=== PATIENT | female | born 1955 | race Caucasian/White ===

== ENCOUNTER 2016-03-30 14:44 | Emergency (ER) | payer MEDICARE, OTHER ==
[2016-03-30] MEDS ORDERED: PROPARACAINE 0.5% OPHTH DROPS 15 ML ONE (15:03)
[2016-03-30] MEDS ORDERED: HYDROcod/ACETAM 5/325 MG TABLET PO STA (15:15)
[2016-03-30] MEDS ORDERED: PROPARACAINE 0.5% OPHTH DROPS 15 ML EACHEYE STA (15:16)
[2016-03-30] MEDS ORDERED: HYDROcod/ACETAM 5/325 MG TABLET ONE (15:23)
[2016-03-30] MEDS ORDERED: diazePAM 5 MG TABLET PO STA (15:57)
[2016-03-30] MEDS ORDERED: diazePAM 5 MG TABLET PO ONE (15:59)
== END 2016-03-30 17:28 | disposition home or self-care (01) ==
DX: G44.059 Short lasting unilateral neuralgiform headache with conjunctival injection and tearing (SUNCT), not intractable (principal); M79.2 Neuralgia and neuritis, unspecified; R03.0 Elevated blood-pressure reading, without diagnosis of hypertension
CPT/HCPCS: 36415; 85025; 85651; 86140; 99282; 99284; A9270; J3490

== ENCOUNTER 2016-03-31 | Outpatient (CLI) | payer MEDICARE, OTHER | END 2016-03-31 17:24 | disposition short-term general hospital (02) | CPT/HCPCS: A0425; A0429 ==

== ENCOUNTER 2016-04-12 19:32 | Emergency (ER) | payer MEDICARE, OTHER ==
[2016-04-12] MEDS ORDERED: DEXAMETHASONE 10 MG/ML VIAL PO STA (20:13)
[2016-04-12] MEDS ORDERED: GABAPENTIN 100 MG CAPSULE PO STA (20:13)
[2016-04-12] MEDS ORDERED: KETOROLAC 60 MG/2 ML VIAL IM STA (20:13)
[2016-04-12] MEDS ORDERED: HYDROmorphone 1 MG/ML SYRINGE IM STA ×2 (20:13→21:07)
[2016-04-12] MEDS ORDERED: HYDROmorphone 1 MG/ML SYRINGE ONE ×2 (20:16→21:22)
[2016-04-12] MEDS ORDERED: GABAPENTIN 100 MG CAPSULE PO ONE (20:16)
[2016-04-12] MEDS ORDERED: DEXAMETHASONE 10 MG/ML VIAL ONE (20:16)
[2016-04-12] MEDS ORDERED: KETOROLAC 60 MG/2 ML VIAL ONE (20:17)
[2016-04-12] MEDS ORDERED: CHERRY SYRUP 10 ML UDC PO ONE (20:19)
[2016-04-12] MEDS ORDERED: oxyCOD/ACETAMIN 5 MG/325 MG TABLET PO STA (21:07)
[2016-04-12] MEDS ORDERED: oxyCOD/ACETAMIN 5 MG/325 MG TABLET PO ONE ×2 (21:22→21:30)
[2016-04-12] MEDS ORDERED: oxyCODONE/ACET 5/325 Prepack 4 PO STA (22:02)
[2016-04-12] MEDS ORDERED: oxyCODONE/ACET 5/325 Prepack 4 PO ONE (22:11)
== END 2016-04-12 22:25 | disposition home or self-care (01) ==
DX: B02.9 Zoster without complications (principal); G50.1 Atypical facial pain
CPT/HCPCS: 96372; 99283; 99284; A9270; J1170

== ENCOUNTER 2016-06-01 20:26 | Emergency (ER) | payer MEDICARE, OTHER ==
[2016-06-01] MEDS ORDERED: PROPARACAINE 0.5% OPHTH DROPS 15 ML RIGHTEYE STA (20:55)
[2016-06-01] MEDS ORDERED: PROPARACAINE 0.5% OPHTH DROPS 15 ML ONE (20:55)
[2016-06-01] MEDS ORDERED: valACYclovir 500 MG TABLET PO STA (22:05)
[2016-06-01] MEDS ORDERED: valACYclovir 500 MG TABLET PO ONE (22:24)
== END 2016-06-01 22:32 | disposition home or self-care (01) ==
DX: H57.11 Ocular pain, right eye (principal); B02.30 Zoster ocular disease, unspecified; R03.0 Elevated blood-pressure reading, without diagnosis of hypertension; Z87.891 Personal history of nicotine dependence
CPT/HCPCS: 99283; A9270; J3490

== ENCOUNTER 2016-11-19 06:49 | Outpatient (CLI) | payer MEDICARE, OTHER | END 2016-11-19 06:50 | disposition critical access hospital (66) | LOC: EMS 06:49 | PROVIDERS: ATTEND Surgery | DX: R11.2 Nausea with vomiting, unspecified (principal); R19.7 Diarrhea, unspecified; R42 Dizziness and giddiness; R10.9 Unspecified abdominal pain | CPT/HCPCS: A0425; A0427 ==

== ENCOUNTER 2016-11-19 06:58 | Observation (INO) | payer MEDICARE, OTHER ==
[2016-11-19] MEDS ORDERED: SODIUM CHLORIDE 0.9% 1,000 ML IV ONE ×3 (07:28→10:02)
[2016-11-19] MEDS ORDERED: PROMETHAZINE INJ 25 MG in SODIUM CHLORIDE 0.9% 50 ML IV STA (07:28)
--- NOTE | 2016-11-19 07:31 | ED Physician Documentation ---
PD HPI NVD - Stated complaint Stated Complaint: N/V/D - Chief complaint Chief Complaint: Abd Pain - History obtained from History obtained from: Patient, EMS - History of Present Illness Timing - onset: How many days ago (5) Timing - duration: Days (5) Timing - details: Gradual onset, Still present Associated symptoms: Abdominal pain, Dizzy, Loss of appetite Contributing factors: No: Recent antibiotics Improved by: Vomiting Similar symptoms before: Has not had sx before Recently seen: Not recently seen - Additonal information Additional information: 61-year-old female With a history of GERD has developed nausea vomiting and diarrhea over the past 5 days. She has had diarrhea 5 times per day and vomited numerous times. She is nauseated now after receiving Zofran in route to the hospital. She has some epigastric pain as well. She has not noted any blood in her stool or vomit. She feels weak and very sick. Review of Systems Constitutional: reports: Chills, Myalgias, Fatigue, Sweats. denies: Fever Eyes: denies: Decreased vision Ears: denies: Ear pain Nose: denies: Rhinorrhea / runny nose, Congestion Throat: denies: Sore throat Cardiac: denies: Chest pain / pressure, Palpitations Respiratory: denies: Dyspnea, Cough GI: reports: Abdominal Pain, Nausea, Vomiting, Diarrhea : denies: Dysuria, Frequency Skin: denies: Rash Musculoskeletal: denies: Neck pain, Back pain, Extremity pain Neurologic: reports: Generalized weakness. 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 and currettage, Other - Present Medications Home Medications: Ambulatory Orders Medication Instructions Recorded Confirmed Sucralfate [Carafate] 1 gm PO ACHS #40 [facility] [place] 01/17/13 09/06/14 Esomeprazole Magnesium [Nexium] 40 mg PO BID 03/08/13 11/19/16 Sertraline [Zoloft] 75 mg PO DAILY 09/06/14 09/06/14 raNITIdine [Zantac] 150 mg PO DAILY 09/06/14 11/19/16 Hydrocodone/Acetaminophen 1 - 2 each PO Q6H PRN #14 tablet 03/30/16 [Hydrocodon-Acetaminophen 5-325] carBAMazepine [TEGretol] 100 mg PO BID #20 tablet 03/30/16 Dexamethasone [Decadron] 4 mg PO DAILY #5 tablet 04/12/16 Erythromycin Base [Erythromycin 1 applic OP QID #3.5 g 04/12/16 Ophthalmic Ointment] Valacyclovir HCl [Valtrex] 1,000 mg PO TID 10 Days tablet 06/01/16 11/19/16 Gabapentin [Gabapentin] 600 mg PO TID 11/19/16 11/19/16 Venlafaxine HCl [Venlafaxine HCl 150 mg PO DAILY PM 11/19/16 11/19/16 ER] Zolpidem Tartrate [Zolpidem 5 mg PO DAILY PM PRN 11/19/16 11/19/16 Tartrate] - Allergies Allergies/Adverse Reactions: Allergies Allergy/AdvReac Type Severity Reaction Status Date / Time No Known Drug Allergies Allergy Verified 11/19/16 07:08 - Social History Does the pt smoke?: No Smoking Status: Former smoker Does the pt drink ETOH?: No Does the pt have substance abuse?: No - Immunizations Immunizations are current?: Yes - POLST Patient has POLST: No PD ED PE NORMAL - Vitals Vital signs reviewed: Yes (Tachycardic and hypertensive) - General General: Well developed/nourished, Other (61-year-old female laying in the position whining and barely able to move.) - HEENT HEENT: Atraumatic, PERRL - Neck Neck: Supple, no meningeal sign - Cardiac Cardiac: No murmur, Other (Tachycardia to 100) - Respiratory Respiratory: No respiratory distress, Clear bilaterally - Abdomen Abdomen: Soft, Other (Mild epigastric tenderness without guarding or rebound no other specific tenderness in the abdomen) - Back Back: No CVA TTP, No spinal TTP - Derm Derm: Normal color, Warm and dry, No rash - Extremities Extremities: No deformity, No edema - Neuro Neuro: No motor deficit, No sensory deficit - Psych Psych: Other (Mood is withdrawn the affect is flat) Results - Vitals Vitals: Vital Signs - 24 hr 11/19/16 11/19/16 11/19/16 07:04 07:09 08:54 Temperature 36.4 C L 36.3 C L Heart Rate 106 H 81 82 Respiratory 24 24 Rate Blood Pressure 170/150 H 141/37 H 124/81 H O2 Saturation 99 97 100 11/19/16 11/19/16 11/19/16 10:01 12:44 13:52 Temperature 36.1 C L 37.1 C 35.9 C L Heart Rate 74 82 89 Respiratory 16 20 16 Rate Blood Pressure 103/66 104/67 124/59 L O2 Saturation 100 99 100 Oxygen O2 Source Room air - Labs Labs: Laboratory Tests 11/19/16 11/19/16 09:08 09:08 WBC 9.9 RBC 4.06 L Hgb 13.6 Hct 40.1 MCV 98.8 MCH 33.5 H MCHC 33.9 RDW 13.0 Plt Count 309 MPV 8.1 Neut # 8.1 H Lymph # 1.1 L Harney # 0.7 Eos # 0.0 Baso # 0.0 Absolute Nucleated RBC 0.00 Nucleated RBC % 0.0 Sodium 140 Potassium 3.3 L Chloride 104 Carbon Dioxide 21 Anion Gap 15.0 H BUN 24 H Creatinine 1.2 H Estimated GFR (MDRD) 46 L Glucose 95 Calcium 8.9 Total Bilirubin 0.6 AST 32 ALT 24 Alkaline Phosphatase 102 Total Protein 7.8 Albumin 4.3 Globulin 3.5 Albumin/Globulin Ratio 1.2 Lipase 30 Procedures - IVC sono (time) 0747 Bedside IVC sono: IVC measures (cm) (0.85), IVC collapsed c insp (cm) (complete) , Dehydration PD MEDICAL DECISION MAKING - ED course Complexity details: reviewed old records, reviewed results, re-evaluated patient , considered differential, d/w patient ED course: 61-year-old female with acute gastroenteritis on the fifth day appears significantly dehydrated. IV is started in the field. She is administered normal saline she did not have much improvement with Zofran and is given Phenergan intravenously for nausea. Departure - Departure Disposition: ED Place in Observation Clinical Impression: Dehydration, Gastroenteritis
[2016-11-19] MEDS ORDERED: PROMETHAZINE 25 MG/1 ML VIAL ONE (07:47)
[2016-11-19 09:18] LABS: BASOPHILS % (AUTO) 0.2 %; EOSINOPHILS % (AUTO) 0.1 %; HCT - HEMATOCRIT 40.1 % (37.0-47.0); HGB - HEMOGLOBIN 13.6 g/dL (12.0-16.0); LYMPHOCYTES # (AUTO) 1.1 10^3/uL (1.5-3.5); LYMPHOCYTES % (AUTO) 10.7 %; MEAN CORPUSCULAR HEMOGLOBIN 33.5 pg (27.0-31.0); MEAN CORPUSCULAR HGB CONC 33.9 g/dL (32.0-36.0); MEAN CORPUSCULAR VOLUME 98.8 fL (81.0-99.0); MEAN PLATELET VOLUME 8.1 fL (7.9-10.8); MONOCYTES # (AUTO) 0.7 10^3/uL (0.0-1.0); MONOCYTES % (AUTO) 6.9 %; NEUTROPHILS # (AUTO) 8.1 10^3/uL (1.5-6.6); NEUTROPHILS % (AUTO) 82.1 %; RED BLOOD COUNT 4.06 10^6/uL (4.20-5.40); UNCORRECTED WHITE BLOOD COUNT 9.9 x10^3/uL; WHITE BLOOD COUNT 9.9 x10^3/uL (4.8-10.8)
[2016-11-19 09:38] LABS: ALBUMIN/GLOBULIN RATIO 1.2 (1.0-2.2); BILIRUBIN,TOTAL 0.6 mg/dL (0.2-1.0); CALCIUM 8.9 mg/dL (8.5-10.3); CREATININE 1.2 mg/dL (0.4-1.0); POTASSIUM 3.3 mmol/L (3.5-5.0); TOTAL PROTEIN 7.8 g/dL (6.7-8.2)
[2016-11-19] MEDS ORDERED: POTASSIUM BICARB 25 MEQ TABLET PO STA (09:53)
[2016-11-19] MEDS ORDERED: ONDANSETRON 4 MG/2 ML VIAL IVP STA ×2 (10:08→14:26)
[2016-11-19] MEDS ORDERED: POTASSIUM CHLOR 10 MEQ/100 ML 10 MEQ/100 ML BAG IV ONE ×2 (10:08→10:19)
[2016-11-19] MEDS ORDERED: SODIUM CHLORIDE FLUSH 0.9% 10 ML SYRINGE IVP ONE (10:19)
[2016-11-19] MEDS ORDERED: ONDANSETRON 4 MG/2 ML VIAL ONE (10:19)
[2016-11-19] MEDS ORDERED: SODIUM CHLORIDE FLUSH 0.9% 10 ML SYRINGE IVP PRN (14:15)
[2016-11-19] MEDS ORDERED: ACETAMINOPHEN 325 MG TABLET PO PRN (14:15)
[2016-11-19] MEDS ORDERED: PROCHLORPERAZINE 10 MG/2 ML VIAL IVP PRN (14:15)
[2016-11-19] MEDS ORDERED: ONDANSETRON 4 MG/2 ML VIAL IVP PRN (14:15)
[2016-11-19] MEDS ORDERED: ONDANSETRON ODT 4 MG TABLET TL PRN (14:15)
[2016-11-19] MEDS ORDERED: diazePAM 5 MG TABLET PO PRN (14:17)
[2016-11-19] MEDS: PANTOPRAZOLE 40 MG VIAL IVP SCH (16:18)
[2016-11-19] MEDS: SODIUM CHLORIDE FLUSH 0.9% 10 ML SYRINGE IVP SCH (16:18)
[2016-11-19] MEDS: GABAPENTIN 300 MG CAPSULE PO SCH ×2 (16:43→21:51)
[2016-11-19 18:20] LABS: BILIRUBIN,URINE NEGATIVE (NEGATIVE); PH,URINE 5.5 PH (5.0-7.5)
[2016-11-19 18:22] LABS: UA CHARGE (STRIP ONLY) YES; UR CULTURE IF IND NOT INDICATED
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
[2016-11-19] MEDS: SODIUM CHLORIDE 0.9% 1,000 ML IV SCH (19:40)
[2016-11-20 05:54] LABS: BASOPHILS # (AUTO) 0.1 10^3/uL (0.0-0.1); BASOPHILS % (AUTO) 1.2 %; EOSINOPHILS # (AUTO) 0.2 10^3/uL (0.0-0.7); EOSINOPHILS % (AUTO) 3.6 %; HCT - HEMATOCRIT 40.7 % (37.0-47.0); HGB - HEMOGLOBIN 13.4 g/dL (12.0-16.0); LYMPHOCYTES # (AUTO) 2.2 10^3/uL (1.5-3.5); LYMPHOCYTES % (AUTO) 39.6 %; MEAN CORPUSCULAR HEMOGLOBIN 33.3 pg (27.0-31.0); MEAN CORPUSCULAR HGB CONC 32.8 g/dL (32.0-36.0); MEAN CORPUSCULAR VOLUME 101.2 fL (81.0-99.0); MEAN PLATELET VOLUME 8.2 fL (7.9-10.8); MONOCYTES # (AUTO) 0.5 10^3/uL (0.0-1.0); MONOCYTES % (AUTO) 9.2 %; NEUTROPHILS # (AUTO) 2.6 10^3/uL (1.5-6.6); NEUTROPHILS % (AUTO) 46.4 %; RED BLOOD COUNT 4.02 10^6/uL (4.20-5.40); RED CELL DISTRIBUTION WIDTH 13.4 % (12.0-15.0); UNCORRECTED WHITE BLOOD COUNT 5.6 x10^3/uL; WHITE BLOOD COUNT 5.6 x10^3/uL (4.8-10.8)
[2016-11-20] MEDS: PANTOPRAZOLE 40 MG VIAL IVP SCH ×2 (05:54→16:33)
[2016-11-20] MEDS: GABAPENTIN 300 MG CAPSULE PO SCH ×2 (05:54→14:41)
[2016-11-20] MEDS: SODIUM CHLORIDE FLUSH 0.9% 10 ML SYRINGE IVP SCH ×2 (05:55→13:01)
[2016-11-20 06:03] LABS: CALCIUM 8.7 mg/dL (8.5-10.3); POTASSIUM 3.3 mmol/L (3.5-5.0)
[2016-11-20] MEDS: SODIUM CHLORIDE 0.9% 1,000 ML IV SCH (06:10)
[2016-11-20] MEDS ORDERED: POTASSIUM CHLORIDE 20 MEQ TABLET PO ONE (08:45)
[2016-11-20] MEDS ORDERED: SERTRALINE 25 MG TABLET PO SCH (09:00)
[2016-11-20] MEDS ORDERED: POLYETHYLENE GLYCOL 3350 17 GM PACKET PO SCH (09:00)
[2016-11-20 16:33] VITALS: BP 130/67
--- NOTE | 2016-11-20 18:09 | Discharge Plan ---
Discharge Plan Disposition: 01 Home, Self Care Condition: Stable Diet: Regular Activity Restrictions: Activity as Tolerated Shower Restrictions: No Driving Restrictions: No Weight Bearing: Full Weight Additional Instructions or Follow Up instructions: Today in the Emergency Department your blood pressure was elevated. This can happen from the stress of the visit itself, from a current illness or circumstance or from uncontrolled hypertension. If you take blood pressure medications take your usual mediations, have your blood pressure re-checked in an appropriate setting and follow up any elevation with your primary care doctor. No Smoking: If you smoke, Please STOP! Call for help. Follow-up with: KARIS WHITNEY [Physician No Access] - 1-2 Days
--- NOTE | 2016-11-20 18:19 | DISCHARGE SUMMARY ---
Discharge Summary Admit Date: 11/19/16 Discharge Date: 11/20/16 Discharging Provider: Dr. Samantha Mcdonald Primary Care Provider: Jose Rdz Code Status: Attempt Resuscitation Condition at Discharge: Stable Discharge Disposition: 01 Home, Self Care - DIAGNOSES Admission Diagnoses: Gastroenteritis, Nausea and Vomiting, Chronic Pain Syndrome from postherpetic neuralgia, Hx of Anxiety and GERD. Discharge Diagnoses with Status of Each Condition: Gastroenteritis-improved, Nausea and vomiting- improved, Chronic Pain Syndrome from postherpetic neuralgia- improved, Anxiety and GERD- controlled - HPI History of Present Illness: The patient was admitted with gastroenteritis that was treated with IV .9 NS. The nausea and vomiting was treated with IV zofran. The chronic pain syndrome resulting from postherpetic neuralgia was treated with valacyclovir. The anxiety was controlled with Zoloft. The patient received 60 mEq of KCl today. The patient improved and was discharged to home. She received a prescription for valacyclovir 500 mg 1 tab po bid x 2 days. - HOSPITAL COURSE Hospital Course: he patient was admitted with gastroenteritis that was treated with IV .9 NS. The nausea and vomiting was treated with IV zofran. The chronic pain syndrome resulting from postherpetic neuralgia was treated with valacyclovir. The anxiety was controlled with Zoloft. The patient received 60 mEq of KCl today. The patient improved and was discharged to home. She received a prescription for valacyclovir 500 mg 1 tab po bid x 2 days. - ALLERGIES Allergies/Adverse Reactions: Allergies Allergy/AdvReac Type Severity Reaction Status Date / Time No Known Drug Allergies Allergy Verified 11/19/16 07:08 - MEDICATIONS Home Medications: Ambulatory Orders Medication Instructions Recorded Confirmed Esomeprazole Magnesium [Nexium] 40 mg PO BID 03/08/13 11/19/16 Sertraline [Zoloft] 75 mg PO DAILY 09/06/14 11/20/16 Valacyclovir HCl [Valtrex] 1,000 mg PO TID 10 Days tablet 06/01/16 11/19/16 Gabapentin [Gabapentin] 600 mg PO TID 11/19/16 11/19/16 Venlafaxine HCl [Venlafaxine HCl 150 mg PO DAILY PM 11/19/16 11/19/16 ER] Zolpidem Tartrate [Zolpidem 5 mg PO DAILY PM PRN 11/19/16 11/19/16 Tartrate] Sulfacetamide/Prednisolone Sp 2 drops EACHEYE BID 11/20/16 11/20/16 [Sulf-Pred 10-0.23% Eye Drops] - PHYSICAL EXAM AT DISCHARGE General Appearance: positive: No acute distress, Alert Eyes Bilateral: positive: Normal inspection Neck: positive: Nml inspection Respiratory: positive: Chest non-tender, No respiratory distress, Breath sounds nml Cardiovascular: positive: Regular rate & rhythm, No murmur, No gallop Peripheral Pulses: positive: 2+ Abdomen: positive: Non-tender, Nml bowel sounds, No distention Skin: positive: Color nml Extremities: positive: Full ROM Neurologic/Psychiatric: positive: Oriented x3, CN's nml (2-12) - LABS Result Diagrams: 11/20/16 05:39 11/20/16 05:39 - FOLLOW UP Follow Up: Follow up with PCP Jose Rdz this week. - TIME SPENT Time Spent in Discharge (Minutes): 60
== END 2016-11-20 19:00 | disposition home or self-care (01) ==
LOC: EDUNIT# → ED 06:58 → OBS 14:15
PROVIDERS: ADMIT Specialist
DX: K52.9 Noninfective gastroenteritis and colitis, unspecified (principal); G89.4 Chronic pain syndrome; B02.22 Postherpetic trigeminal neuralgia; S14.3XXS Injury of brachial plexus, sequela; E86.0 Dehydration; K21.9 Gastro-esophageal reflux disease without esophagitis; F41.1 Generalized anxiety disorder; F32.9 Major depressive disorder, single episode, unspecified; F43.10 Post-traumatic stress disorder, unspecified; R03.0 Elevated blood-pressure reading, without diagnosis of hypertension; Z87.891 Personal history of nicotine dependence; Z79.899 Other long term (current) drug therapy; Z90.49 Acquired absence of other specified parts of digestive tract
CPT/HCPCS: 36415; 80048; 80053; 81003; 83690; 85025; 96361; 96365; 96367; 96375; 96376; 99284; 99285; A9270; G0378; J7040; 81001; 87086; 87493

== ENCOUNTER 2016-12-03 08:45 | Emergency (ER) | payer MEDICARE, OTHER ==
[2016-12-03 09:56] LABS: BASOPHILS # (AUTO) 0.1 10^3/uL (0.0-0.1); BASOPHILS % (AUTO) 0.6 %; EOSINOPHILS # (AUTO) 0.1 10^3/uL (0.0-0.7); EOSINOPHILS % (AUTO) 1.3 %; HCT - HEMATOCRIT 44.9 % (37.0-47.0); HGB - HEMOGLOBIN 15.1 g/dL (12.0-16.0); LYMPHOCYTES # (AUTO) 1.2 10^3/uL (1.5-3.5); LYMPHOCYTES % (AUTO) 11.2 %; MEAN CORPUSCULAR HEMOGLOBIN 33.3 pg (27.0-31.0); MEAN CORPUSCULAR HGB CONC 33.6 g/dL (32.0-36.0); MEAN CORPUSCULAR VOLUME 99.1 fL (81.0-99.0); MONOCYTES # (AUTO) 0.6 10^3/uL (0.0-1.0); NEUTROPHILS # (AUTO) 8.8 10^3/uL (1.5-6.6); NEUTROPHILS % (AUTO) 80.9 %; NUCLEATED RED BLOOD CELLS AUTO 0.1 /100WBC; RED BLOOD COUNT 4.53 10^6/uL (4.20-5.40); RED CELL DISTRIBUTION WIDTH 13.9 % (12.0-15.0); UNCORRECTED WHITE BLOOD COUNT 10.9 x10^3/uL; WHITE BLOOD COUNT 10.9 x10^3/uL (4.8-10.8)
[2016-12-03] MEDS ORDERED: SODIUM CHLORIDE 0.9% 1,000 ML IV ONE ×2 (10:13→11:11)
[2016-12-03] MEDS ORDERED: ONDANSETRON 4 MG/2 ML VIAL IVP STA (10:13)
[2016-12-03 10:15] LABS: ALBUMIN/GLOBULIN RATIO 1.1 (1.0-2.2); BILIRUBIN,TOTAL 0.7 mg/dL (0.2-1.0); CALCIUM 10.3 mg/dL (8.5-10.3); CREATININE 1.2 mg/dL (0.4-1.0); POTASSIUM 3.8 mmol/L (3.5-5.0); TOTAL PROTEIN 9.2 g/dL (6.7-8.2)
[2016-12-03] MEDS ORDERED: ONDANSETRON 4 MG/2 ML VIAL ONE (10:22)
--- NOTE | 2016-12-03 11:15 | ED Physician Documentation ---
PD HPI NVD - Stated complaint Stated Complaint: NAUSEA CHILLS - Chief complaint Chief Complaint: Abd Pain - History obtained from History obtained from: Patient, Family - History of Present Illness Timing - onset: How many weeks ago (3) Timing - duration: Weeks (3) Timing - details: Gradual onset, Still present, Waxing and waning Associated symptoms: Abdominal pain, Dizzy, Near syncope / syncope, Loss of appetite, Weight loss Contributing factors: No: Travel, Recent antibiotics, Alcohol use Improved by: Meds Worsened by: Eating Similar symptoms before: Diagnosis (gastroenteritis) Recently seen: Emergency Dept - Additonal information Additional information: 61-year-old female is developed diarrhea about 3 weeks ago she developed some nausea and vomiting and now has some abdominal pain as well. She was seen in the emergency department and hydrated did somewhat better for several days and then symptoms return. She is having shaking chills and sweats and sweating profusely. She feels the abdominal pain that she is experiencing now has to do with retching. She is nauseous and has vomited about twice per day. Review of Systems Constitutional: reports: Chills, Fatigue, Weight Loss, Sweats Eyes: denies: Decreased vision Ears: denies: Ear pain Nose: denies: Rhinorrhea / runny nose, Congestion Throat: denies: Sore throat Cardiac: denies: Chest pain / pressure, Palpitations Respiratory: denies: Dyspnea, Cough GI: reports: Abdominal Pain, Nausea, Vomiting, Diarrhea : denies: Dysuria, Frequency Skin: denies: Rash PD PAST MEDICAL HISTORY - Past Medical History Cardiovascular: None Respiratory: Shortness of breath Endocrine/Autoimmune: None GI: GERD : Frequency HEENT: Dental implants Psych: Depression, Anxiety, Panic attacks Musculoskeletal: Osteoarthritis Derm: None - Past Surgical History Past Surgical History: Yes General: Cholecystectomy, Colonoscopy, 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, Other - Present Medications Home Medications: Ambulatory Orders Medication Instructions Recorded Confirmed Esomeprazole Magnesium [Nexium] 40 mg PO BID 03/08/13 12/03/16 Sertraline [Zoloft] 75 mg PO DAILY 09/06/14 12/03/16 Valacyclovir HCl [Valtrex] 1,000 mg PO TID 10 Days tablet 06/01/16 12/03/16 Gabapentin [Gabapentin] 600 mg PO TID 11/19/16 12/03/16 Venlafaxine HCl [Venlafaxine HCl 150 mg PO DAILY PM 11/19/16 12/03/16 ER] Zolpidem Tartrate [Zolpidem 5 mg PO DAILY PM PRN 11/19/16 12/03/16 Tartrate] Sulfacetamide/Prednisolone Sp 2 drops EACHEYE BID 11/20/16 12/03/16 [Sulf-Pred 10-0.23% Eye Drops] LORazepam [Ativan] 1 mg PO Q6H PRN #20 tablet 12/03/16 Promethazine [Phenergan] 25 - 50 mg PO Q6H PRN #10 tab 12/03/16 - Allergies Allergies/Adverse Reactions: Allergies Allergy/AdvReac Type Severity Reaction Status Date / Time No Known Drug Allergies Allergy Verified 12/03/16 08:55 - Social History Does the pt smoke?: No Smoking Status: Never smoker Does the pt drink ETOH?: No Does the pt have substance abuse?: No - Immunizations Immunizations are current?: Yes - POLST Patient has POLST: No PD ED PE NORMAL - Vitals Vital signs reviewed: Yes (hypertensive ) - General General: Alert and oriented X 3, Well developed/nourished, Other (The patient is drenched in sweat and is whinning. She gives the whine of helplessness. ) - HEENT HEENT: Atraumatic, PERRL - Neck Neck: Supple, no meningeal sign - Cardiac Cardiac: RRR, No murmur - Respiratory Respiratory: No respiratory distress, Clear bilaterally - Abdomen Abdomen: Soft, Other (mild mid epigastric tenderness without garding or rebound. ) - Back Back: No CVA TTP, No spinal TTP - Derm Derm: Normal color, Other (skin is warm to the touch and drenched in sweat) - Extremities Extremities: No deformity, No edema - Neuro Neuro: No motor deficit, No sensory deficit - Psych Psych: Other (Mood is helpless affect is flat) Results - Vitals Vitals: Vital Signs - 24 hr 12/03/16 12/03/16 12/03/16 08:50 11:34 12:45 Temperature 35.5 C L Heart Rate 75 68 74 Respiratory 24 18 16 Rate Blood Pressure 118/85 H 130/89 H 126/70 O2 Saturation 98 96 100 12/03/16 14:52 Temperature Heart Rate 70 Respiratory 16 Rate Blood Pressure 122/64 O2 Saturation 98 Oxygen O2 Source Room air - Labs Labs: Laboratory Tests 12/03/16 12/03/16 12/03/16 09:25 09:25 11:25 WBC 10.9 H RBC 4.53 Hgb 15.1 Hct 44.9 MCV 99.1 H MCH 33.3 H MCHC 33.6 RDW 13.9 Plt Count 399 MPV 8.0 Neut # 8.8 H Lymph # 1.2 L [place] # 0.6 Eos # 0.1 Baso # 0.1 Absolute Nucleated RBC 0.01 Nucleated RBC % 0.1 Sodium 141 Potassium 3.8 Chloride 104 Carbon Dioxide 22 Anion Gap 15.0 H BUN 14 Creatinine 1.2 H Estimated GFR (MDRD) 46 L Glucose 138 H Calcium 10.3 Total Bilirubin 0.7 AST 33 ALT 28 Alkaline Phosphatase 128 H Total Protein 9.2 H Albumin 4.8 Globulin 4.3 H Albumin/Globulin Ratio 1.1 Lipase 35 Urine Color YELLOW Urine Clarity SL. CLOUDY Urine pH 6.0 Ur Specific [place] >=1.030 H Urine Protein NEGATIVE Urine Glucose (UA) NEGATIVE Urine Ketones NEGATIVE Urine Occult Blood NEGATIVE Urine Nitrite NEGATIVE Urine Bilirubin NEGATIVE Urine Urobilinogen 0.2 (NORMAL) Ur Leukocyte Esterase NEGATIVE Urine RBC 0-5 Urine WBC 0-3 Ur Squamous Epith Cells FEW Squamous Urine Bacteria Few Urine Casts 6-10 Hyaline Casts Urine Mucus Few Strands Ur Microscopic Review INDICATED Urine Culture Comments NOT INDICATED Procedures - IVC sono (time) 1100 Bedside IVC sono: IVC measures (cm) (1.37), IVC collapsed c insp (cm) (complete) , Dehydration (after one liter of saline.) PD MEDICAL DECISION MAKING - ED course Complexity details: reviewed old records, reviewed results, re-evaluated patient , considered differential, d/w patient, d/w family ED course: 61-year-old female with a gastroenteritis that has recurred on her has returned to the emergency department with nausea vomiting diarrhea and dehydration. She is administered IV fluids she does not have much response to Zofran for nausea she has good response to the Phenergan for the nausea and even better response to Ativan 1 mg. She is much improved and is discharged to home. I did discuss with the patient cannabis hyperemesis syndrome she does use cannabis but states that her use of it is only very little. She does get into the bathtub but not excessively. Departure - Departure Disposition: 01 Home, Self Care Clinical Impression: Gastroenteritis, Dehydration Instructions: ED Dehydration, ED Gastroenteritis Non Infec Follow-Up: REILLY Luke [Provider Group] Prescriptions: LORazepam [Ativan] 1 mg PO Q6H PRN #20 tablet PRN Reason: Anxiety Promethazine [Phenergan] 25 - 50 mg PO Q6H PRN #10 tab PRN Reason: Nausea / Vomiting Discharge Date/Time: 12/03/16 14:52
[2016-12-03 11:37] LABS: BILIRUBIN,URINE NEGATIVE (NEGATIVE)
[2016-12-03 11:39] LABS: UA w/ MICROSCOPIC CHARGE YES
[2016-12-03] MEDS ORDERED: PROMETHAZINE INJ 25 MG in SODIUM CHLORIDE 0.9% 50 ML IV STA (11:44)
[2016-12-03 11:45] LABS: UR CULTURE IF IND NOT INDICATED; WBC,URINE 0-3 /HPF (0-5)
[2016-12-03] MEDS ORDERED: PROMETHAZINE 25 MG/1 ML VIAL ONE (11:50)
[2016-12-03] MEDS ORDERED: LORazepam 2 MG/ML SYRINGE IVP STA (12:55)
[2016-12-03] MEDS ORDERED: LORazepam 2 MG/ML SYRINGE ONE (13:12)
[2016-12-03 14:54] VITALS: BP 122/64
== END 2016-12-03 14:52 | disposition home or self-care (01) ==
LOC: ED 08:45
DX: K52.9 Noninfective gastroenteritis and colitis, unspecified (principal); E86.0 Dehydration
CPT/HCPCS: 36415; 80053; 81001; 83690; 85025; 96361; 96365; 96375; 99284; J2060; J7040; 81003; 87086; 87493

== ENCOUNTER 2017-01-08 11:51 | Outpatient (CLI) | payer MEDICARE, OTHER | END 2017-01-08 11:52 | disposition critical access hospital (66) | LOC: EMS 11:51 | PROVIDERS: ATTEND Surgery | DX: T43.012A Poisoning by tricyclic antidepressants, intentional self-harm, initial encounter (principal) | CPT/HCPCS: A0425; A0429 ==

== ENCOUNTER 2017-01-08 11:52 | Emergency (ER) | payer MEDICARE, OTHER ==
--- NOTE | 2017-01-08 12:21 | ED Physician Documentation ---
PD HPI MHE - Stated complaint Stated Complaint: SI - Chief complaint Chief Complaint: MHE - History obtained from History obtained from: Patient - History of Present Illness Primary symptom: Other (At 1130 this morning she took about 10 amitriptyline pills, 50 mg by her estimation an attempt to hurt herself. Stressors include financial issues and chronic pain from shingles. She has never had a suicide attempt before.) Review of Systems Ten Systems: 10 systems reviewed and negative Constitutional: reports: Reviewed and negative Cardiac: reports: Reviewed and negative Respiratory: reports: Reviewed and negative GI: reports: Reviewed and negative : reports: Reviewed and negative PD PAST MEDICAL HISTORY - Past Medical History Cardiovascular: None Respiratory: Shortness of breath Endocrine/Autoimmune: None GI: GERD : Frequency HEENT: Dental implants Psych: Depression, Anxiety, Panic attacks Musculoskeletal: Osteoarthritis Derm: None - Past Surgical History Past Surgical History: Yes General: Cholecystectomy, Colonoscopy, 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, Other - Present Medications Home Medications: Ambulatory Orders Medication Instructions Recorded Confirmed Esomeprazole Magnesium [Nexium] 40 mg PO BID 03/08/13 01/08/17 Sertraline [Zoloft] 75 mg PO DAILY 09/06/14 01/08/17 Valacyclovir HCl [Valtrex] 1,000 mg PO TID 10 Days tablet 06/01/16 01/08/17 Gabapentin [Gabapentin] 600 mg PO TID 11/19/16 01/08/17 Venlafaxine HCl [Venlafaxine HCl 150 mg PO DAILY PM 11/19/16 01/08/17 ER] Zolpidem Tartrate [Zolpidem 5 mg PO DAILY PM PRN 11/19/16 01/08/17 Tartrate] Sulfacetamide/Prednisolone Sp 2 drops EACHEYE BID 11/20/16 01/08/17 [Sulf-Pred 10-0.23% Eye Drops] LORazepam [Ativan] 1 mg PO Q6H PRN #20 tablet 12/03/16 01/08/17 Promethazine [Phenergan] 25 - 50 mg PO Q6H PRN #10 tab 12/03/16 01/08/17 - Allergies Allergies/Adverse Reactions: Allergies Allergy/AdvReac Type Severity Reaction Status Date / Time No Known Drug Allergies Allergy Verified 12/03/16 08:55 - Social History Does the pt smoke?: No Smoking Status: Never smoker Does the pt drink ETOH?: No Does the pt have substance abuse?: No - Family History Family history: reports: Non contributory - Immunizations Immunizations are current?: Yes - POLST Patient has POLST: No PD ED PE NORMAL - Vitals Vital signs reviewed: Yes - General General: Alert and oriented X 3, Other (Very slightly sleepy, tearful, good historian) - HEENT HEENT: PERRL, EOMI - Neck Neck: Supple, no meningeal sign, No bony TTP - Cardiac Cardiac: RRR, No murmur - Respiratory Respiratory: No respiratory distress, Clear bilaterally - Abdomen Abdomen: Soft, Non tender - Back Back: No CVA TTP, No spinal TTP - Derm Derm: Normal color, Warm and dry - Extremities Extremities: No edema, No calf tenderness / cord - Neuro Neuro: Alert and oriented X 3, Normal speech Eye Opening: Spontaneous Motor: Obeys Commands Verbal: Oriented GCS Score: 15 - Psych Psych: No: Normal affect (tearful) Results - Vitals Vitals: Vital Signs - 24 hr 01/08/17 01/08/17 01/08/17 11:53 12:50 14:23 Temperature 36.2 C L 36.6 C 36.1 C L Heart Rate 80 72 75 Respiratory 17 22 14 Rate Blood Pressure 152/77 H 124/80 126/90 H O2 Saturation 100 96 96 01/08/17 16:42 Temperature 36.5 C Heart Rate 70 Respiratory 16 Rate Blood Pressure 124/66 O2 Saturation 100 Oxygen O2 Source Room air - EKG (time done) 1212 Rate: Rate (enter#) (76) Rhythm: NSR [place]: Normal Intervals: Normal [place] QRS: Normal Ischemia: Normal ST segments Computer interpretation: Agree with computer 1335 Rate: Rate (enter#) (70) Rhythm: NSR [place]: Normal Intervals: Normal [place] QRS: Normal Ischemia: Normal ST segments Computer interpretation: Agree with computer - Labs Labs: Laboratory Tests 01/08/17 01/08/17 01/08/17 12:18 12:18 12:18 WBC 4.8 RBC 4.01 L Hgb 13.5 Hct 40.2 MCV 100.2 H MCH 33.8 H MCHC 33.7 RDW 14.7 Plt Count 316 MPV 7.8 L Neut # 2.8 Lymph # 1.3 L [place] # 0.4 Eos # 0.2 Baso # 0.0 Absolute Nucleated RBC 0.00 Nucleated RBC % 0.1 Sodium 137 Potassium 4.0 Chloride 104 Carbon Dioxide 24 Anion Gap 9.0 BUN 16 Creatinine 1.0 Estimated GFR (MDRD) 56 L Glucose 97 Calcium 9.2 Magnesium 2.0 Total Bilirubin 0.4 AST 24 ALT 18 Alkaline Phosphatase 82 Total Protein 8.0 Albumin 4.3 Globulin 3.7 Albumin/Globulin Ratio 1.2 Lipase 51 TSH 3.58 Urine Color Urine Clarity Urine pH Ur Specific [place] Urine Protein Urine Glucose (UA) Urine Ketones Urine Occult Blood Urine Nitrite Urine Bilirubin Urine Urobilinogen Ur Leukocyte Esterase Ur Microscopic Review Urine Culture Comments Salicylates < 6.0 Urine Opiates Screen Ur Oxycodone Screen Urine Methadone Screen Ur Propoxyphene Screen Acetaminophen < 10 L Ur Barbiturates Screen Ur Tricyclics Screen Ur Phencyclidine Scrn Ur Amphetamine Screen U Methamphetamines Scrn U Benzodiazepines Scrn Urine Cocaine Screen U Cannabinoids Screen Ethyl Alcohol < 5.0 01/08/17 16:00 WBC RBC Hgb Hct MCV MCH MCHC RDW Plt Count MPV Neut # Lymph # [place] # Eos # Baso # Absolute Nucleated RBC Nucleated RBC % Sodium Potassium Chloride Carbon Dioxide Anion Gap BUN Creatinine Estimated GFR (MDRD) Glucose Calcium Magnesium Total Bilirubin AST ALT Alkaline Phosphatase Total Protein Albumin Globulin Albumin/Globulin Ratio Lipase TSH Urine Color YELLOW Urine Clarity CLEAR Urine pH 5.5 Ur Specific [place] 1.025 Urine Protein NEGATIVE Urine Glucose (UA) NEGATIVE Urine Ketones NEGATIVE Urine Occult Blood NEGATIVE Urine Nitrite NEGATIVE Urine Bilirubin NEGATIVE Urine Urobilinogen 0.2 (NORMAL) Ur Leukocyte Esterase NEGATIVE Ur Microscopic Review NOT INDICATED Urine Culture Comments NOT INDICATED Salicylates Urine Opiates Screen NEGATIVE Ur Oxycodone Screen NEGATIVE Urine Methadone Screen NEGATIVE Ur Propoxyphene Screen NEGATIVE Acetaminophen Ur Barbiturates Screen NEGATIVE Ur Tricyclics Screen NEGATIVE Ur Phencyclidine Scrn NEGATIVE Ur Amphetamine Screen NEGATIVE U Methamphetamines Scrn NEGATIVE U Benzodiazepines Scrn NEGATIVE Urine Cocaine Screen NEGATIVE U Cannabinoids Screen POSITIVE H Ethyl Alcohol PD MEDICAL DECISION MAKING - ED course ED course: Poison control was contacted, they recommend 6 hour observation and serial EKGs. There was no QRS widening on her EKGs. Her mental status remained normal. [facility] was called and saw her, she knows the patient well and feels this was more of a gesture and will not detain her and feels she does not need inpatient treatment. Departure - Departure Disposition: 01 Home, Self Care Clinical Impression: Intentional overdose of drug in tablet form Condition: Good Record reviewed to determine appropriate education?: Yes Instructions: ED Stress React, ED Overdose Intentional Comments: See your doctor tomorrow as discussed. Return anytime if worse.
[2017-01-08 12:24] LABS: EOSINOPHILS # (AUTO) 0.2 10^3/uL (0.0-0.7); EOSINOPHILS % (AUTO) 3.2 %; HCT - HEMATOCRIT 40.2 % (37.0-47.0); HGB - HEMOGLOBIN 13.5 g/dL (12.0-16.0); LYMPHOCYTES # (AUTO) 1.3 10^3/uL (1.5-3.5); LYMPHOCYTES % (AUTO) 27.8 %; MEAN CORPUSCULAR HEMOGLOBIN 33.8 pg (27.0-31.0); MEAN CORPUSCULAR HGB CONC 33.7 g/dL (32.0-36.0); MEAN CORPUSCULAR VOLUME 100.2 fL (81.0-99.0); MEAN PLATELET VOLUME 7.8 fL (7.9-10.8); MONOCYTES # (AUTO) 0.4 10^3/uL (0.0-1.0); MONOCYTES % (AUTO) 8.8 %; NEUTROPHILS # (AUTO) 2.8 10^3/uL (1.5-6.6); NEUTROPHILS % (AUTO) 59.2 %; NUCLEATED RED BLOOD CELLS AUTO 0.1 /100WBC; RED BLOOD COUNT 4.01 10^6/uL (4.20-5.40); RED CELL DISTRIBUTION WIDTH 14.7 % (12.0-15.0); UNCORRECTED WHITE BLOOD COUNT 4.8 x10^3/uL; WHITE BLOOD COUNT 4.8 x10^3/uL (4.8-10.8)
[2017-01-08 12:38] LABS: ALBUMIN/GLOBULIN RATIO 1.2 (1.0-2.2); BILIRUBIN,TOTAL 0.4 mg/dL (0.2-1.0); BUN - BLOOD UREA NITROGEN 16 mg/dL (6-20); CALCIUM 9.2 mg/dL (8.5-10.3); CARBON DIOXIDE - CO2 24 mmol/L (21-32); CHLORIDE 104 mmol/L (101-111); GFR - MDRD 56 (>89); GLUCOSE 97 mg/dL (70-100); LIPASE 51 U/L (22-51); SALICYLATE < 6.0 mg/dL; SODIUM 137 mmol/L (135-145)
[2017-01-08 12:54] LABS: ACETAMINOPHEN < 10 ug/mL (10-30)
[2017-01-08 16:20] LABS: BILIRUBIN,URINE NEGATIVE (NEGATIVE); PH,URINE 5.5 PH (5.0-7.5)
[2017-01-08 16:21] LABS: UA CHARGE (STRIP ONLY) YES; UR CULTURE IF IND NOT INDICATED
[2017-01-08] MEDS ORDERED: valACYclovir 500 MG TABLET PO STA (16:30)
[2017-01-08] MEDS ORDERED: valACYclovir 500 MG TABLET ONE (16:39)
[2017-01-08 18:07] VITALS: BP 119/84
== END 2017-01-08 18:07 | disposition home or self-care (01) ==
LOC: EDUNIT# → ED 11:52
DX: T43.012A Poisoning by tricyclic antidepressants, intentional self-harm, initial encounter (principal)
CPT/HCPCS: 36415; 80053; 80306; 80307; 81003; 83690; 83735; 84443; 85025; 93005; 99284; A9270; G0480; 80320; 80329; 81001; 87086

== ENCOUNTER 2017-02-16 21:51 | Outpatient (CLI) | payer MEDICARE, OTHER | END 2017-02-16 21:52 | disposition critical access hospital (66) | LOC: EMS 21:51 | PROVIDERS: ATTEND Surgery | DX: R07.9 Chest pain, unspecified (principal) | CPT/HCPCS: A0425; A0429 ==

== ENCOUNTER 2017-02-16 22:02 | Emergency (ER) | payer MEDICARE, OTHER ==
[2017-02-16] MEDS ORDERED: diazePAM 5 MG TABLET PO STA (22:20)
--- NOTE | 2017-02-16 22:20 | ED Physician Documentation ---
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 patient states that she was taking a medication this morning for her facial pain. patient states that she developed some left sided chest pain. patient states that the pain is sharp in nature. patient reports that chest pain could be a side effect but was also told that if she had chest pain she should go get checked out. Review of Systems Eyes: reports: Decreased vision Ears: reports: Ear pain Nose: denies: Congestion Throat: denies: Dental pain / toothache, Oral lesions / sores Cardiac: reports: Chest pain / pressure Respiratory: denies: Dyspnea, Cough GI: denies: Nausea, Vomiting : reports: Reviewed and negative Skin: reports: Rash, Lesions Neurologic: denies: Generalized weakness, Focal weakness, Numbness Psychiatric: reports: Depressed PD PAST MEDICAL HISTORY - Past Medical History Cardiovascular: None Respiratory: Shortness of breath Endocrine/Autoimmune: None GI: GERD : Frequency HEENT: Dental implants Psych: Depression, Anxiety, Panic attacks Musculoskeletal: Osteoarthritis Derm: None - Past Surgical History Past Surgical History: Yes General: Cholecystectomy, Colonoscopy, 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, Other - Present Medications Home Medications: Ambulatory Orders Medication Instructions Recorded Confirmed Valacyclovir HCl [Valtrex] 1,000 mg PO TID 10 Days tablet 06/01/16 02/16/17 Gabapentin [Gabapentin] 600 mg PO TID 11/19/16 02/16/17 Venlafaxine HCl [Venlafaxine HCl 150 mg PO DAILY PM 11/19/16 02/16/17 ER] Zolpidem Tartrate [Zolpidem 5 mg PO DAILY PM PRN 11/19/16 02/16/17 Tartrate] Sulfacetamide/Prednisolone Sp 2 drops EACHEYE BID 11/20/16 02/16/17 [Sulf-Pred 10-0.23% Eye Drops] Vitamin B Complex 1 tab ORAL DAILY 02/16/17 02/16/17 - Allergies Allergies/Adverse Reactions: Allergies Allergy/AdvReac Type Severity Reaction Status Date / Time No Known Drug Allergies Allergy Verified 02/16/17 22:10 - Social History Does the pt smoke?: No Smoking Status: Never smoker Does the pt drink ETOH?: No Does the pt have substance abuse?: No - Immunizations Immunizations are current?: Yes - POLST Patient has POLST: No PD ED PE NORMAL - Vitals Vital signs reviewed: Yes - General General: Alert and oriented X 3 - HEENT HEENT: Atraumatic, Moist mucous membranes - Neck Neck: Supple, no meningeal sign, No JVD - Cardiac Cardiac: RRR, No murmur - Respiratory Respiratory: No respiratory distress, Clear bilaterally - Abdomen Abdomen: Soft, Non tender, Non distended - Derm Derm: Warm and dry - Extremities Extremities: No deformity, Normal ROM s pain, No edema, No calf tenderness / cord - Neuro Neuro: Alert and oriented X 3, No motor deficit, No sensory deficit, Normal speech PD ED PE EXPANDED - General General: Alert, In Pain - HEENT HEENT: Other (tenderness to palpation of right side of face, no rash present) - Eyes Eyes: Other (injection of sclera of right eye) Results - Vitals Vitals: Vital Signs - 24 hr 02/16/17 02/16/17 22:04 23:06 Temperature 36.3 C L Heart Rate 96 71 Respiratory 18 18 Rate Blood Pressure 164/101 H 125/79 O2 Saturation 100 100 Oxygen O2 Source Room air - EKG (time done) 2219 Rate: Rate (enter#) (87) Rhythm: NSR [place]: Normal Intervals: Normal [place] QRS: Normal Ischemia: Normal ST segments Compare to prior EKG: Unchanged from prior EKG - Labs Labs: Laboratory Tests 02/16/17 02/16/17 02/16/17 22:20 22:20 22:20 WBC 7.8 RBC 3.90 L Hgb 12.8 Hct 38.9 MCV 99.9 H MCH 32.9 H MCHC 32.9 RDW 13.3 Plt Count 397 MPV 7.6 L Neut # 5.1 Lymph # 1.6 [place] # 0.6 Eos # 0.3 Baso # 0.1 Absolute Nucleated RBC 0.00 Nucleated RBC % 0.0 Sodium 138 Potassium 3.5 Chloride 105 Carbon Dioxide 22 Anion Gap 11.0 BUN 19 Creatinine 0.9 Estimated GFR (MDRD) 63 L Glucose 101 H Calcium 9.1 Total Bilirubin 0.4 AST 23 ALT 17 Alkaline Phosphatase 70 Troponin I < 0.04 Total Protein 7.6 Albumin 3.9 Globulin 3.7 Albumin/Globulin Ratio 1.1 Lipase 35 - Rads (name of study) chest Radiology: Final report received (no acute abnormality) Procedures - Regional nerve block Nerve block site: Supraorbital/trochlear, Infraorbital Right / left: Right Nerve block anesthesia: Marcaine 0.5% Nerve block aftercare: Excellent anesthesia, Patient tolerated well, No complications PD MEDICAL DECISION MAKING - ED course Complexity details: reviewed old records, reviewed results, re-evaluated patient , considered differential, d/w patient ED course: patient was seen and examined at bedside. labs were drawn and ekg was performed. patient was upset and anxious and treated with valium. Patient's main issue seemed to be the facial pain as opposed to the chest pain. infraorbital and supraorbital nerve blocks were performed with good relief. Patient stated it was the best she had felt in a long time. patient's cardiac work up was negative and had a heart score of 2. Patient required no further work up and was stable for discharge with outpatient follow up. Departure - Departure Disposition: 01 Home, Self Care Clinical Impression: Atypical chest pain, Neuralgia, Facial pain Condition: Good Instructions: ED Acute Pain [facility] Follow-Up: primary,care provider [Other] - Within 3 Days Comments: Your diagnostics today were within normal limits. There is no sign of acute cardiac disease at this time. That being said it is only a snapshot in time and you should follow up with your doctor. As for your nerve pain it is good that you had some relief with the nerve block and you should continue to follow up with the anesthesiologist for further care. You may return to the emergency department at any time for new, worsening or uncontrollable symptoms. Discharge Date/Time: 02/16/17 23:08
[2017-02-16 22:25] LABS: BASOPHILS # (AUTO) 0.1 10^3/uL (0.0-0.1); BASOPHILS % (AUTO) 1.2 %; EOSINOPHILS # (AUTO) 0.3 10^3/uL (0.0-0.7); EOSINOPHILS % (AUTO) 3.7 %; HGB - HEMOGLOBIN 12.8 g/dL (12.0-16.0); LYMPHOCYTES # (AUTO) 1.6 10^3/uL (1.5-3.5); LYMPHOCYTES % (AUTO) 21.2 %; MEAN CORPUSCULAR HEMOGLOBIN 32.9 pg (27.0-31.0); MEAN CORPUSCULAR HGB CONC 32.9 g/dL (32.0-36.0); MEAN CORPUSCULAR VOLUME 99.9 fL (81.0-99.0); MEAN PLATELET VOLUME 7.6 fL (7.9-10.8); MONOCYTES # (AUTO) 0.6 10^3/uL (0.0-1.0); MONOCYTES % (AUTO) 8.3 %; NEUTROPHILS # (AUTO) 5.1 10^3/uL (1.5-6.6); NEUTROPHILS % (AUTO) 65.6 %; PLT - PLATELET COUNT 397 10^3/uL (130-450); RED CELL DISTRIBUTION WIDTH 13.3 % (12.0-15.0); WHITE BLOOD COUNT 7.8 x10^3/uL (4.8-10.8)
[2017-02-16] MEDS ORDERED: BUPIVACAINE 0.5% PF 30 ML VIAL SUBQ STA (22:33)
[2017-02-16 22:37] LABS: ALBUMIN 3.9 g/dL (3.2-5.5); ALBUMIN/GLOBULIN RATIO 1.1 (1.0-2.2); BILIRUBIN,TOTAL 0.4 mg/dL (0.2-1.0); CALCIUM 9.1 mg/dL (8.5-10.3); CREATININE 0.9 mg/dL (0.4-1.0); TOTAL PROTEIN 7.6 g/dL (6.7-8.2)
--- NOTE | 2017-02-16 22:39 | XRAY Report ---
EXAM: CHEST RADIOGRAPHY EXAM DATE: 02/16/2017 10:27 PM. CLINICAL HISTORY: Right-sided chest pain. COMPARISON: None. TECHNIQUE: 1 view. FINDINGS: Lungs/Pleura: No focal consolidation or evidence of edema. No pleural effusion or pneumothorax. Mediastinum: Normal cardiomediastinal contour. Other: The bones are unremarkable. IMPRESSION: Normal single view chest. [facility] Referring Provider Line: [phone] SITE ID: [id number]
[2017-02-16 23:06] VITALS: BP 125/79
== END 2017-02-16 23:08 | disposition home or self-care (01) ==
LOC: EDUNIT# → ED 22:02
DX: R07.89 Other chest pain (principal); G50.0 Trigeminal neuralgia; R51 Headache; F41.9 Anxiety disorder, unspecified
CPT/HCPCS: 36415; 64400; 71045; 80053; 83690; 84484; 85025; 93005; 99283; A9270

== ENCOUNTER 2017-03-10 01:31 | Outpatient (CLI) | payer MEDICARE, OTHER | END 2017-03-10 01:32 | disposition critical access hospital (66) | LOC: EMS 01:31 | PROVIDERS: ATTEND Surgery | DX: S01.82XA Laceration with foreign body of other part of head, initial encounter (principal); S09.93XA Unspecified injury of face, initial encounter; R46.4 Slowness and poor responsiveness; R29.6 Repeated falls; W18.39XA Other fall on same level, initial encounter; Y92.003 Bedroom of unspecified non-institutional (private) residence as the place of occurrence of the external cause | CPT/HCPCS: A0425; A0429 ==

== ENCOUNTER 2017-03-10 01:40 | Emergency (ER) | payer MEDICARE, OTHER ==
--- NOTE | 2017-03-10 02:09 | ED Physician Documentation ---
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 She was reportedly very sleepy after having taken gabapentin. She fell hitting her face on the floor, breaking her 2 upper incisors, and injuring her nose and lower lip. She reports headache and neck pain. She denies chest pain , shortness of breath, nausea or vomiting. She denies history of similar symptoms in the past. Her past medical history is significant for recently diagnosed shingles involving the right ophthalmic distribution. She arrives via ambulance with cervical immobilization. Prehospital blood sugar is normal at 91. Review of Systems Constitutional: denies: Fever Eyes: denies: Decreased vision Ears: denies: Tinnitus/ringing Nose: denies: Congestion Throat: denies: Sore throat Cardiac: denies: Chest pain / pressure Respiratory: denies: Dyspnea, Cough GI: denies: Abdominal Pain, Nausea, Vomiting : denies: Dysuria, Incontinent Skin: reports: Laceration (s) (lower lip). denies: Rash Musculoskeletal: reports: Neck pain. denies: Back pain, Extremity pain Neurologic: reports: Syncope, Headache. 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, Other - Present Medications Home Medications: Ambulatory Orders Medication Instructions Recorded Confirmed Valacyclovir HCl [Valtrex] 1,000 mg PO TID 10 Days tablet 06/01/16 03/10/17 Venlafaxine HCl [Venlafaxine HCl 150 mg PO DAILY PM 11/19/16 03/10/17 ER] Gabapentin [Gabapentin] mg ORAL 03/10/17 HYDROcod/ACETAM 5/325 [[place] 5/325] 1 - 2 ea PO Q6H PRN #15 tablet 03/10/17 - Allergies Allergies/Adverse Reactions: Allergies Allergy/AdvReac Type Severity Reaction Status Date / Time No Known Drug Allergies Allergy Verified 03/10/17 01:48 - Living Situation Living Situation: reports: With family Living Arrangement: reports: At home - Social History Does the pt smoke?: No Smoking Status: Never smoker Does the pt drink ETOH?: No Does the pt have substance abuse?: No - Immunizations Immunizations are current?: Yes - POLST Patient has POLST: No PD ED PE NORMAL - Vitals Vital signs reviewed: Yes (normal) - General General: Alert and oriented X 3, Well developed/nourished - HEENT HEENT: PERRL, EOMI, Ears normal, Pharynx benign, Other (Both upper incisors are fractured. The lower lip has a through and through laceration, about 2 cm in length. There is swelling of the nose, with tenderness to palpation at the base of the nose. There is no septal hematoma. There is no bony step-off or tenderness palpated of the mandible or maxilla.) - Neck Neck: No bony TTP, No adenopathy, Other (There is mild tenderness to palpation of the paracervical musculature bilaterally.) - Cardiac Cardiac: RRR, No murmur - Respiratory Respiratory: No respiratory distress, Clear bilaterally, Other (No chest wall tenderness to palpation.) - Abdomen Abdomen: Soft, Non tender - Back Back: No CVA TTP, No spinal TTP - Derm Derm: No rash - Extremities Extremities: No deformity, No tenderness to palpate, No edema, No calf tenderness / cord - Neuro Neuro: Alert and oriented X 3, No motor deficit, No sensory deficit Results - Vitals Vitals: Oxygen O2 Source Room air - EKG (time done) 01:51 Rate: Rate (enter#) (61) Rhythm: NSR [place]: Normal Intervals: Normal [place] QRS: Normal Ischemia: Normal ST segments Computer interpretation: Agree with computer - Labs Labs: Laboratory Tests 03/10/17 03/10/17 02:10 02:10 WBC 7.6 RBC 3.87 L Hgb 12.8 Hct 38.9 MCV 100.7 H MCH 33.1 H MCHC 32.9 RDW 13.2 Plt Count 300 MPV 7.8 L Neut # 5.1 Lymph # 1.5 [place] # 0.6 Eos # 0.4 Baso # 0.1 Absolute Nucleated RBC 0.00 Nucleated RBC % 0.0 Sodium 137 Potassium 3.4 L Chloride 105 Carbon Dioxide 23 Anion Gap 9.0 BUN 17 Creatinine 0.9 Estimated GFR (MDRD) 63 L Glucose 107 H Calcium 8.7 Total Bilirubin 0.4 AST 24 ALT 17 Alkaline Phosphatase 73 Total Protein 6.9 Albumin 3.7 Globulin 3.2 Albumin/Globulin Ratio 1.2 Lipase 39 - Rads (name of study) Head CT Radiology: Prelim report reviewed, EMP read contemporaneously, See rad report ( Normal head CT.) CT Facial Bones Radiology: Prelim report reviewed, EMP read contemporaneously, See rad report ( Right nasal bone fracture.) CT Cervical Spine Radiology: Prelim report reviewed, EMP read contemporaneously, See rad report ( No cervical spine fracture.) Procedures - Laceration (location) lower lip Length in cm: 2 Wound type: Irregular, Into muscle Neurovascular status: Sensory intact, Motor intact, Vascular intact Anesthesia: Lidocaine 1% with epi Wound Preparation: Hibiclens, Irrigated copiously NS Skin layer closure: Nylon, Size #-0 - enter number (5), Sutures - enter # (4) Other: Patient tolerated well, No complications, Neurovascular intact, Tetanus UTD Complexity: Simple PD MEDICAL DECISION MAKING - ED course Complexity details: reviewed results, re-evaluated patient, considered differential, d/w patient ED course: The patient's presentation is significant for facial injury suffered from falling. This was an apparent syncopal episode, most likely due to sleepiness from medication. I doubt cardiac syncope, and there is no evidence to suggest hypotension or seizure activity. Her injuries include fractured upper incisors , nasal bone fracture, and lower lip laceration. CT scan results of her head, facial bones, and cervical spine reveal right nasal bone fracture, and no other abnormalities. EKG, CBC, and chemistry panel are unremarkable. Treatment in the emergency department included repair of the lower lip laceration. Normal saline 1 L and morphine 4 mg were administered IV. Following the above treatment, the patient demonstrated ability to ambulate without lightheadedness. I discussed with her the expected course of the healing, importance of urgent dental follow-up, appropriate wound care and timing for suture removal, as well as potentially worrisome signs or symptoms that should prompt reevaluation in the emergency department. Departure - Departure Disposition: 01 Home, Self Care Clinical Impression: Fall Qualifiers: Encounter type: initial encounter Qualified Code(s): W19.XXXA - Unspecified fall, initial encounter Nasal bone fracture Qualifiers: Encounter type: initial encounter Fracture type: closed Qualified Code(s): S02.2XXA - Fracture of nasal bones, initial encounter for closed fracture Fracture of incisor teeth Qualifiers: Encounter type: initial encounter Lip laceration Qualifiers: Encounter type: initial encounter Qualified Code(s): S01.511A - Laceration without foreign body of lip, initial encounter Condition: Stable Instructions: ED Laceration Mouth, ED Avulsion Dermal Follow-Up: KARIS WHITNEY [Primary Care Provider] - Prescriptions: HYDROcod/ACETAM 5/325 [[place] 5/325] 1 - 2 ea PO Q6H PRN #15 tablet PRN Reason: Pain Comments: Apply ice pack to the bruised areas intermittently for the next 3 or 4 days. Keep the wound clean, and apply antibiotic ointment daily. Follow-up for suture removal in about 10 days. Follow up with the dentist as soon as possible to repair the fractured incisors. Return to the emergency department if you develop recurrent falling, difficulty breathing, any sign of infection, or otherwise worsening symptoms. Discharge Date/Time: 03/10/17 07:04
[2017-03-10 02:18] LABS: BASOPHILS # (AUTO) 0.1 10^3/uL (0.0-0.1); BASOPHILS % (AUTO) 1.7 %; EOSINOPHILS # (AUTO) 0.4 10^3/uL (0.0-0.7); EOSINOPHILS % (AUTO) 4.7 %; HGB - HEMOGLOBIN 12.8 g/dL (12.0-16.0); LYMPHOCYTES # (AUTO) 1.5 10^3/uL (1.5-3.5); LYMPHOCYTES % (AUTO) 19.3 %; MEAN CORPUSCULAR HEMOGLOBIN 33.1 pg (27.0-31.0); MEAN CORPUSCULAR HGB CONC 32.9 g/dL (32.0-36.0); MEAN CORPUSCULAR VOLUME 100.7 fL (81.0-99.0); MEAN PLATELET VOLUME 7.8 fL (7.9-10.8); MONOCYTES # (AUTO) 0.6 10^3/uL (0.0-1.0); MONOCYTES % (AUTO) 7.4 %; NEUTROPHILS # (AUTO) 5.1 10^3/uL (1.5-6.6); NEUTROPHILS % (AUTO) 66.9 %; PLT - PLATELET COUNT 300 10^3/uL (130-450); RED BLOOD COUNT 3.87 10^6/uL (4.20-5.40); RED CELL DISTRIBUTION WIDTH 13.2 % (12.0-15.0); WHITE BLOOD COUNT 7.6 x10^3/uL (4.8-10.8)
[2017-03-10 02:29] LABS: ALBUMIN 3.7 g/dL (3.2-5.5); ALBUMIN/GLOBULIN RATIO 1.2 (1.0-2.2); BILIRUBIN,TOTAL 0.4 mg/dL (0.2-1.0); CALCIUM 8.7 mg/dL (8.5-10.3); CREATININE 0.9 mg/dL (0.4-1.0); TOTAL PROTEIN 6.9 g/dL (6.7-8.2)
--- NOTE | 2017-03-10 02:53 | CT Report ---
EXAM: CT HEAD EXAM DATE: 03/10/2017 02:37 AM. CLINICAL HISTORY: Syncopal fall onto head/face. COMPARISON: None. TECHNIQUE: Multiaxial CT images were obtained from the foramen magnum to the vertex. Reformats: Coron al. IV contrast: None. In accordance with CT protocol optimization, one or more of the following dose reduction techniques w ere utilized for this exam: automated exposure control, adjustment of mA and/or KV based on patient s ize, or use of iterative reconstructive technique. FINDINGS: Parenchyma: No intraparenchymal hemorrhage. No evidence of mass, midline shift, or CT findings of inf arction. Jones-white differentiation is distinct. Extraaxial Spaces: Normal for age. No subdural or epidural collections identified. Ventricles: Normal in size and position. Sinuses and Orbits: Imaged paranasal sinuses, orbits, and mastoids show no significant abnormality. Bones: No evidence of fracture or calvarial defect. Other: None. IMPRESSION: Normal head CT. [facility] Referring Provider Line: [phone] SITE ID: [id number]
--- NOTE | 2017-03-10 02:53 | CT Preliminary Report ---
Exam: CT HEAD W/O IMPRESSION: Normal head CT. [facility] SITE ID: [id number]
--- NOTE | 2017-03-10 02:59 | CT Preliminary Report ---
Exam: CT FACIAL BONES W/O IMPRESSION: Right nasal bone fracture. [facility] SITE ID: [id number]
--- NOTE | 2017-03-10 02:59 | CT Report ---
EXAM: CT MAXILLOFACIAL WITHOUT CONTRAST EXAM DATE: 03/10/2017 02:38 AM. CLINICAL HISTORY: Fall with facial injuries. COMPARISONS: None. TECHNIQUE: Thin-section axial images were acquired of the face without contrast. Post-processing: Cor onal and sagittal reformats. Other: None. In accordance with CT protocol optimization, one or more of the following dose reduction techniques w ere utilized for this exam: automated exposure control, adjustment of mA and/or KV based on patient s ize, or use of iterative reconstructive technique. FINDINGS: Soft Tissue: There is evidence of laceration with gas in the nasal soft tissues.The infratemporal fos sa and parapharyngeal spaces are unremarkable. Orbits: Symmetric and unremarkable. Bones: There is a mildly displaced fracture of right superior nasal bone. No additional fracture. The re is periodontal disease with lucency adjacent to the roots of right lower premolar. Temporomandibular Joints: The temporomandibular joints are symmetric and normally located. Sinuses: Normal. No mucosal thickening or fluid levels. Other: None. IMPRESSION: Right nasal bone fracture. [facility] Referring Provider Line: [phone] SITE ID: [id number]
--- NOTE | 2017-03-10 03:07 | CT Preliminary Report ---
Exam: CT CERVICAL SPINE W/O IMPRESSION: No evidence of cervical spine fracture. [facility] SITE ID: [id number]
--- NOTE | 2017-03-10 03:07 | CT Report ---
EXAM: CT CERVICAL SPINE WITHOUT CONTRAST DATE: 03/10/2017 02:39 AM. HISTORY: Fall with facial injuries and neck pain. COMPARISONS: MR cervical spine 03/24/2008. TECHNIQUE: Thin-section axial images were acquired of the cervical spine without contrast. Post-proce ssing: Coronal and sagittal reformats. Other: None. In accordance with CT protocol optimization, one or more of the following dose reduction techniques w ere utilized for this exam: automated exposure control, adjustment of mA and/or KV based on patient s ize, or use of iterative reconstructive technique. FINDINGS: Alignment: No scoliosis or spondylolisthesis. Bones: No fracture or bone lesion. Incidental note load of C4, C5 and T3 vertebral body hemangiomas. Interspace Levels/Facets: C1-C2: Unremarkable. C2-C3: Unremarkable. C3-C4: Unremarkable. C4-C5: Unremarkable. C5-C6: Unremarkable. C6-C7: There is disk height loss. No evidence of central canal narrowing. There is uncovertebral oste ophytosis with mild bilateral neural foraminal narrowing. C7-T1: Unremarkable. Musculature: Normal. No fatty atrophy. Other: The paravertebral and prevertebral soft tissues are unremarkable. The lung apices are clear. IMPRESSION: No evidence of cervical spine fracture. [facility] Referring Provider Line: [phone] SITE ID: [id number]
[2017-03-10] MEDS ORDERED: MORPHINE 2 MG/ML CARPUJECT IVP STA (03:52)
[2017-03-10] MEDS ORDERED: SODIUM CHLORIDE 0.9% 1,000 ML IV ONE (04:30)
[2017-03-10 06:18] VITALS: BP 117/81
== END 2017-03-10 07:04 | disposition home or self-care (01) ==
LOC: EDUNIT# → ED 01:40
DX: S02.2XXA Fracture of nasal bones, initial encounter for closed fracture (principal); S02.5XXA Fracture of tooth (traumatic), initial encounter for closed fracture; S01.511A Laceration without foreign body of lip, initial encounter; W18.39XA Other fall on same level, initial encounter; Y93.01 Activity, walking, marching and hiking; Y92.018 Other place in single-family (private) house as the place of occurrence of the external cause; K21.9 Gastro-esophageal reflux disease without esophagitis; M19.90 Unspecified osteoarthritis, unspecified site
CPT/HCPCS: 12011; 36415; 70450; 70486; 72125; 80053; 83690; 85025; 93005; 96361; 96374; 99284

== ENCOUNTER 2017-09-12 12:56 | Outpatient (CLI) | payer MEDICARE, OTHER | END 2017-09-12 12:57 | disposition critical access hospital (66) | LOC: EMS 12:56 | PROVIDERS: ATTEND Surgery | DX: R52 Pain, unspecified (principal) | CPT/HCPCS: A0425; A0429 ==

== ENCOUNTER 2017-09-12 13:04 | Emergency (ER) | payer MEDICARE, OTHER ==
[2017-09-12] MEDS ORDERED: FLUCONAZOLE 100 MG TABLET PO STA (13:39)
[2017-09-12] MEDS ORDERED: LORazepam 0.5 MG TABLET PO STA (13:39)
--- NOTE | 2017-09-12 13:40 | ED Physician Documentation ---
PD HPI MHE - Stated complaint Stated Complaint: ANXIETY - Chief complaint Chief Complaint: General - History obtained from History obtained from: Patient, EMS - History of Present Illness Primary symptom: Depression (due to chronic pain of face/scalp), Anxiety. No: Suicidal ideation, Suicide attempt, Off meds Contributing factors: No: Substance abuse - ETOH, Substance abuse - drugs Review of Systems Constitutional: reports: Myalgias, Fatigue (chronically (since the shingles last year)). denies: Fever, Chills Eyes: reports: Decreased vision (right eye due to cataract and some corneal scarring from the prior shingles.) Nose: denies: Rhinorrhea / runny nose, Congestion Throat: denies: Sore throat Cardiac: denies: Chest pain / pressure Respiratory: denies: Dyspnea, Cough GI: denies: Abdominal Pain, Nausea, Vomiting, Diarrhea, Bloody / black stool : reports: Discharge (notes some vaginal and crural itching the past couple of weeks, without discharge per se.). denies: Dysuria, Frequency, Irregular menses Skin: denies: Rash (not currently), Lesions Musculoskeletal: denies: Neck pain, Back pain Neurologic: reports: Generalized weakness. denies: Focal weakness, Numbness, Near syncope, Altered mental status, Headache, Head injury Psychiatric: reports: Depressed, Anxiety. 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, Other - Present Medications Home Medications: Ambulatory Orders Medication Instructions Recorded Confirmed Valacyclovir HCl [Valtrex] 1,000 mg PO TID 10 Days tablet 06/01/16 03/10/17 Venlafaxine HCl [Venlafaxine HCl 150 mg PO DAILY PM 11/19/16 03/10/17 ER] Albuterol Sulf [Ventolin Hfa 2 - 3 puffs INH Q4HR PRN #1 inhaler 09/12/17 Inhaler] Doxycycline Monohydrate 100 mg PO BID #14 tablet 09/12/17 Fluconazole [Diflucan] 150 mg PO ONCE #1 tablet 09/12/17 - Allergies Allergies/Adverse Reactions: Allergies Allergy/AdvReac Type Severity Reaction Status Date / Time No Known Drug Allergies Allergy Verified 09/12/17 13:11 - Social History Does the pt smoke?: No Smoking Status: Never smoker Does the pt drink ETOH?: No Does the pt have substance abuse?: No - Immunizations Immunizations are current?: Yes - POLST Patient has POLST: No PD ED PE NORMAL - Vitals Vital signs reviewed: Yes - General General: Alert and oriented X 3, Well developed/nourished, Other (emotionally distraught. Alert and conversant. ) - HEENT HEENT: Atraumatic, Ears normal, Pharynx benign - Neck Neck: Supple, no meningeal sign, No adenopathy - Cardiac Cardiac: RRR, No murmur - Respiratory Respiratory: Clear bilaterally - Abdomen Abdomen: Soft, Non tender - Female Female : Deferred - Derm Derm: Normal color, Warm and dry - Extremities Extremities: No deformity, No tenderness to palpate, Normal ROM s pain, No edema , No calf tenderness / cord, Other (left upper arm with slightly tender firm subcut area that feels c/w lipoma. Not fluctuant and no redness. ) - Neuro Neuro: Alert and oriented X 3, No motor deficit, No sensory deficit, Normal speech Eye Opening: Spontaneous Motor: Obeys Commands Verbal: Oriented GCS Score: 15 Results - Vitals Vitals: Vital Signs - 24 hr 09/12/17 16:56 Heart Rate 65 Respiratory 15 Rate Blood Pressure 117/65 O2 Saturation 99 Oxygen O2 Source Room air - Labs Labs: Laboratory Tests 09/12/17 09/12/17 09/12/17 13:50 14:05 14:05 WBC 7.3 RBC 4.39 Hgb 13.9 Hct 42.1 MCV 95.8 MCH 31.7 H MCHC 33.0 RDW 13.2 Plt Count 382 MPV 7.9 Neut # (Auto) 5.7 Lymph # (Auto) 1.0 L [place] # (Auto) 0.5 Eos # (Auto) 0.1 Baso # (Auto) 0.1 Absolute Nucleated RBC 0.00 Nucleated RBC % 0.0 ESR 36 H Sodium Potassium Chloride Carbon Dioxide Anion Gap BUN Creatinine Estimated GFR (MDRD) Glucose Calcium Magnesium Total Bilirubin AST ALT Alkaline Phosphatase Total Protein Albumin Globulin Albumin/Globulin Ratio Lipase CA 125 Antigen TSH Urine Color YELLOW Urine Clarity CLOUDY Urine pH 5.5 Ur Specific [place] >=1.030 H Urine Protein TRACE Urine Glucose (UA) NEGATIVE Urine Ketones NEGATIVE Urine Occult Blood NEGATIVE Urine Nitrite NEGATIVE Urine Bilirubin NEGATIVE Urine Urobilinogen 0.2 (NORMAL) Ur Leukocyte Esterase NEGATIVE Urine RBC 0-5 Urine WBC 0-3 Ur Squamous Epith Cells RARE Squamous Urine Crystals >50 Uric Acid Amorphous Sediment Marked Urine Bacteria Rare Ur Microscopic Review INDICATED Urine Culture Comments NOT INDICATED Ethyl Alcohol 09/12/17 09/12/17 14:05 14:05 WBC RBC Hgb Hct MCV MCH MCHC RDW Plt Count MPV Neut # (Auto) Lymph # (Auto) [place] # (Auto) Eos # (Auto) Baso # (Auto) Absolute Nucleated RBC Nucleated RBC % ESR Sodium 138 Potassium 3.7 Chloride 104 Carbon Dioxide 22 Anion Gap 12.0 BUN 15 Creatinine 1.0 Estimated GFR (MDRD) 56 L Glucose 90 Calcium 9.8 Magnesium 2.2 Total Bilirubin 0.7 AST 27 ALT 16 Alkaline Phosphatase 91 Total Protein 8.8 H Albumin 4.1 Globulin 4.7 H Albumin/Globulin Ratio 0.9 L Lipase 41 CA 125 Antigen 45.7 H TSH 4.47 Urine Color Urine Clarity Urine pH Ur Specific [place] Urine Protein Urine Glucose (UA) Urine Ketones Urine Occult Blood Urine Nitrite Urine Bilirubin Urine Urobilinogen Ur Leukocyte Esterase Urine RBC Urine WBC Ur Squamous Epith Cells Urine Crystals Amorphous Sediment Urine Bacteria Ur Microscopic Review Urine Culture Comments Ethyl Alcohol < 5.0 PD MEDICAL DECISION MAKING - ED course Complexity details: reviewed results (basic tests are okay. Screening tests are limited by nospecificity, but her concern was with cancers or such. CBC is okay , CXR with slight patchiness but no focal lesions. CA125 elevated (nonspecific of course) but will get pelvic U/S as recommended screening based on that test result (per UpToDate).), considered differential (distressed re: chronic pain and wanting it to be better. After hearing the issues and specialists she has been too, and another neurosurg and IR later this month, I don't think I will be able to solve her pain problem. After discussion, she acknowleges this and we came to the goal here in the ER to look for underlying system problems that may be causing her to have the chronic symptoms "do I have cancer or kidney problems or something?" asks the patient). I outlined the limits of basic testing here but can do some tests to look for other system problems that may be affecting her healing/recovery from the shingles pain, though I reinterated that some small percent of people with shingles just have chronic pain without underlying immune issues. ), d/w patient - Sepsis Event Vital Signs: Vital Signs - 24 hr 09/12/17 16:56 Heart Rate 65 Respiratory 15 Rate Blood Pressure 117/65 O2 Saturation 99 Oxygen O2 Source Room air Departure - Departure Disposition: 01 Home, Self Care Clinical Impression: Cough, Right upper lobe pulmonary infiltrate, Facial pain Condition: Stable Record reviewed to determine appropriate education?: Yes Instructions: ED Upper Resp Infec Abx Tx Follow-Up: KARIS WHITNEY [Primary Care Provider] - Prescriptions: Albuterol Sulf [Ventolin Hfa Inhaler] 2 - 3 puffs INH Q4HR PRN #1 inhaler PRN Reason: Shortness Of Air/Wheezing Doxycycline Monohydrate 100 mg PO BID #14 tablet Fluconazole [Diflucan] 150 mg PO ONCE #1 tablet Comments: There was a mild area of haziness in the right upper lung which along with your cough and congestion could represent an early pneumonia. Potentially could be allergies and congestion as well. Use an inhaler 2 puffs 4 times a day for the next 7-10 days. Add doxycycline antibiotic as well for potential infection. Continue your other usual medications. Follow-up with your primary care as planned. Your other tests here today did not show any significant abnormalities to suggest other underlying diseases. Discharge Date/Time: 09/12/17 16:57
[2017-09-12 14:11] LABS: BASOPHILS # (AUTO) 0.1 10^3/uL (0.0-0.1); BASOPHILS % (AUTO) 1.4 %; EOSINOPHILS # (AUTO) 0.1 10^3/uL (0.0-0.7); EOSINOPHILS % (AUTO) 0.8 %; HGB - HEMOGLOBIN 13.9 g/dL (12.0-16.0); MEAN CORPUSCULAR HEMOGLOBIN 31.7 pg (27.0-31.0); MEAN CORPUSCULAR VOLUME 95.8 fL (81.0-99.0); MEAN PLATELET VOLUME 7.9 fL (7.9-10.8); MONOCYTES # (AUTO) 0.5 10^3/uL (0.0-1.0); MONOCYTES % (AUTO) 6.2 %; NEUTROPHILS # (AUTO) 5.7 10^3/uL (1.5-6.6); NEUTROPHILS % (AUTO) 77.6 %; PLT - PLATELET COUNT 382 10^3/uL (130-450); RED BLOOD COUNT 4.39 10^6/uL (4.20-5.40); RED CELL DISTRIBUTION WIDTH 13.2 % (12.0-15.0); WHITE BLOOD COUNT 7.3 x10^3/uL (4.8-10.8)
[2017-09-12 14:34] LABS: ALBUMIN 4.1 g/dL (3.2-5.5); ALBUMIN/GLOBULIN RATIO 0.9 (1.0-2.2); ALKALINE PHOSPHATASE 91 IU/L (42-121); ALT ALANINE AMINOTRANSFERASE 16 IU/L (10-60); AST ASPARTATE AMINOTRANSFERASE 27 IU/L (10-42); BILIRUBIN,TOTAL 0.7 mg/dL (0.2-1.0); BUN - BLOOD UREA NITROGEN 15 mg/dL (6-20); CALCIUM 9.8 mg/dL (8.5-10.3); CARBON DIOXIDE - CO2 22 mmol/L (21-32); CHLORIDE 104 mmol/L (101-111); GFR - MDRD 56 (>89); GLUCOSE 90 mg/dL (70-100); LIPASE 41 U/L (22-51); MAGNESIUM 2.2 mg/dL (1.7-2.8); SODIUM 138 mmol/L (135-145); TOTAL PROTEIN 8.8 g/dL (6.7-8.2)
[2017-09-12 14:41] LABS: CA 125 45.7 U/mL (0.0-35.0)
[2017-09-12 14:45] LABS: THYROID STIMULATING HORMONE 4.47 uIU/mL (0.34-5.60)
--- NOTE | 2017-09-12 14:52 | XRAY Report ---
Procedure Date: 09/12/2017 Accession Number: [id number] / [id number] Procedure: XR - Chest 2 View X-Ray CPT Code: 74818 FULL RESULT: EXAM: CHEST RADIOGRAPHY EXAM DATE: 09/12/2017 02:36 PM. CLINICAL HISTORY: Chest pain left sided. COMPARISON: 02/16/2017. TECHNIQUE: 2 views. FINDINGS: Lungs/Pleura: Patchy infiltrate in the right upper lobe. No pleural effusion. No pneumothorax. Normal volumes. Mediastinum: Heart and mediastinal contours are unremarkable. Other: None. IMPRESSION: Right upper lobe infiltrate. Recommend follow-up to clear [facility]
[2017-09-12 15:18] LABS: BILIRUBIN,URINE NEGATIVE (NEGATIVE); GLUCOSE, URINE (UA) NEGATIVE (NEGATIVE); KETONES,URINE (UA) NEGATIVE (NEGATIVE); LEUKOCYTE ESTERASE, URINE NEGATIVE (NEGATIVE); NITRITE,URINE NEGATIVE (NEGATIVE); OCCULT BLOOD,URINE NEGATIVE (NEGATIVE); PH,URINE 5.5 PH (5.0-7.5); PROTEIN,URINE TRACE mg/dL (NEGATIVE); UROBILINOGEN,URINE 0.2 (NORMAL) E.U./dL (NORMAL)
[2017-09-12 15:21] LABS: CLARITY,URINE CLOUDY (CLEAR)
[2017-09-12 15:38] LABS: RBC,URINE 0-5 /HPF (0-5)
[2017-09-12 15:39] LABS: AMORPHOUS SEDIMENT,UR Marked /LPF; BACTERIA,URINE Rare /HPF (None Seen); SQUAMOUS EPITHELIAL CELL,UR RARE Squamous (<= Few)
--- NOTE | 2017-09-12 16:21 | Ultrasound Report ---
Procedure Date: 09/12/2017 Accession Number: [id number] / [id number] Procedure: US - Pelvic w/Transvag+Doppler Ltd CPT Code: FULL RESULT: EXAM: PELVIC ULTRASOUND TRANSVAGINAL ULTRASOUND EXAM DATE: 09/12/2017 04:03 PM. CLINICAL HISTORY: Pelvic discomfort. COMPARISON: CT abdomen/pelvis 10/07/2014. TECHNIQUE: Realtime transabdominal pelvic scan performed to identify the uterus and adnexa and as an overview of other pelvic structures, followed by transvaginal scan to provide greater detail of the uterus and adnexa, with static image documentation. FINDINGS: The uterus measures 4.2 x 3.1 x 1.9 cm with a volume of 12.9 cc. The uterus is anteverted. The endometrium measures 1.7 mm. No endometrial thickening. Small amount of fluid seen within the endometrial cavity in the fundal region. No uterine masses are seen. Cervix appears unremarkable. Right ovary measures 2.1 x 1.7 x 1.5 cm with a volume of 2.8 cc. Doppler flow is seen within the right ovary. Arterial waveforms seen in the right ovary. Echogenic area seen within the right ovary measures 8.4 x 9.7 x 9.8 mm. This could represent a collapsed corpus luteum. Differential includes a right ovarian dermoid. The left ovary measures 2.4 x 1.7 x 1.5 cm with a volume of 3.2 cc. The left ovary appears within normal limits. Doppler flow is seen in the left ovary. No free fluid. Limited visualization on transabdominal imaging due to limited penetration due to large body habitus. IMPRESSION: 1. No acute findings are seen. 2. Small amount of fluid in the endometrial cavity. 3. Echogenic area seen within the right ovary measures 8.4 x 9.7 x 9.8 mm. This could represent a collapsed corpus luteum. Differential includes a right ovarian dermoid. No evidence for a right ovarian dermoid on the prior CT. [facility]
[2017-09-12 16:57] VITALS: BP 117/65
== END 2017-09-12 16:57 | disposition home or self-care (01) ==
LOC: EDUNIT# → ED 13:04
DX: R05 Cough (principal); R91.8 Other nonspecific abnormal finding of lung field; R51 Headache
CPT/HCPCS: 36415; 71046; 76830; 76856; 80053; 81001; 83690; 83735; 84443; 85025; 85651; 86304; 93976; 99283; A9270; 80320; 81003; 87086

== ENCOUNTER 2018-12-05 14:17 | Outpatient (CLI) | payer MEDICARE, OTHER ==
[2018-12-05] MEDS ORDERED: GADOBUTROL 10 MMOL/10 ML VIAL ONE (14:39)
[2018-12-05] MEDS ORDERED: GADOBUTROL 10 MMOL/10 ML VIAL IVP ONE (15:19)
--- NOTE | 2018-12-05 16:33 | MRI Report ---
Reason: POST HERPETIC TRIGEMINAL NEURALGIA Procedure Date: 12/05/2018 Accession Number: [id number] / [id number] Procedure: MRI - Brain W/WO CPT Code: FULL RESULT: EXAM: MRI BRAIN AND INTERNAL AUDITORY CANAL (IAC),WITHOUT AND WITH CONTRAST. EXAM DATE: 12/05/2018 03:34 PM. CLINICAL HISTORY: 63-year-old presenting with postherpetic trigeminal neuralgia. Evaluate for intracranial pathology. COMPARISON: CT head 03/10/2017. TECHNIQUE: Multiplanar, multisequence T1-weighted and fluid-sensitive MRI sequences of the brain and IACs were performed before and after administration of intravenous contrast. Other: None. IV Contrast: 10 cc Gadavist. FINDINGS: Brain Volume: Normal for age. Parenchyma/Dura: No acute parenchymal hemorrhage, mass, or midline shift. There is mild bilateral areas of T2/FLAIR signal hyperintensity seen including patchy FLAIR signal hyperintensity seen within the praveen.No areas of restricted diffusion seen to suggest acute infarct. No abnormal areas of parenchymal susceptibility artifact. No abnormal enhancement. Internal Auditory Canals (IACs): There appears to be a branch of the right superior cerebellar artery that abuts the superior aspect of the cisternal right trigeminal nerve (series 901, image 47). No cranial nerve lesion or inflammatory process identified. The inner ear structure are symmetric and unremarkable. Ventricles/Cisterns: No hydrocephalus. No abnormal extra-axial fluid collection or hemorrhage. Orbits: Symmetric and unremarkable. Sella Turcica: The pituitary gland, cavernous sinuses, suprasellar cistern and optic chiasm are unremarkable. Vasculature: Normal signal flow void is seen in the major arterial structures at the skull base. The dural sinuses are patent and enhance normally. Sinuses: No acute sinus disease. Bones: No focal pathologic appearing marrow signal changes. Other: None. IMPRESSION: 1. No definite acute intracranial pathology seen; specifically, no acute infarct, acute intracranial hemorrhage, mass, hydrocephalus, or midline shift. No abnormal postcontrast enhancement. 2. There appears to be a branch of the right superior cerebellar artery that abuts the superior aspect of the cisternal right trigeminal nerve (series 901, image 47). Clinical correlation for potential neurovascular compromise is suggested. 3. Otherwise the posterior fossa and internal auditory canals appear clear with no definite mass or inflammatory process seen. 4. Mild white matter changes seen that are nonspecific but may represent sequela of chronic small vessel ischemic disease. RADIA
== END 2018-12-05 14:18 | disposition home or self-care (01) ==
LOC: DI 14:17
PROVIDERS: ATTEND Family Medicine
DX: B02.22 Postherpetic trigeminal neuralgia (principal)
CPT/HCPCS: 70553; A9585

== ENCOUNTER 2020-03-13 12:33 | Outpatient (CLI) | payer MEDICARE, OTHER ==
--- NOTE | 2020-03-14 08:27 | Ultrasound Report ---
LIMITED ULTRASOUND OF RIGHT BREAST: 03/13/2020 CLINICAL: Focal right breast pain. Comparison is made to exam dated: 03/13/2020 mammogram - [facility]. Real-time ultrasound of the right breast lower inner quadrant was performed. Jones scale images of th e real-time examination were reviewed. No significant abnormalities were seen sonographically in the right breast. IMPRESSION: NEGATIVE There is no sonographic evidence of malignancy. There is no abnormality seen in the right breast to correspond with the pain in the inferior medial q uadrant, however, clinical correlation is recommended. A 1 year screening mammogram is recommended. This exam was interpreted at Station ID: [id number]. Electronically Signed By: Rolan owen/oma:03/13/2020 13:58:50 Ultrasound BI-RADS: 1 Negative BI-RADS CATEGORY: (1) - 1 RECOMMENDATION: (ANNUAL) - Recommend routine annual screening mammography. [id number] 1 year screening LATERALITY: (B)
--- NOTE | 2020-03-14 08:27 | Mammography Report ---
BILATERAL DIGITAL DIAGNOSTIC MAMMOGRAM 3D/2D: 03/13/2020 CLINICAL: Focal right breast pain. No prior exams were available for comparison. The tissue of both breasts is heterogeneously dense. T his may lower the sensitivity of mammography. No significant masses, calcifications, or other findings are seen in either breast. IMPRESSION: INCOMPLETE: NEEDS ADDITIONAL IMAGING EVALUATION There is no abnormality seen in the right breast to correspond with the pain in the inferior aspect, however, ultrasound is recommended. Targeted ultrasound is recommended for further evaluation, which will be performed on the same day immediately following this exam. This exam was interpreted at Station ID: [id number]. NOTE: For mammograms, a report in lay terms will be sent to the patient. Approximately 15% of breast malignancies will not be visualized mammographically. In the management of a palpable breast mass, a negative mammogram must not discourage biopsy of a clinically suspicious lesion. Electronically Signed By: Rolan owen/oma:03/13/2020 13:57:59 ACR BI-RADS Category 0: Incomplete 3340F PARENCHYMAL PATTERN: (D) - The breast(s) demonstrate(s) heterogeneously dense fibroglandular henny echols. BI-RADS CATEGORY: (0) - 0 Ultrasound 20200313 Immediate follow-up LATERALITY: (R)
== END 2020-03-13 12:34 | disposition home or self-care (01) ==
LOC: DI 12:33
PROVIDERS: ATTEND Family Medicine
DX: N64.4 Mastodynia (principal)

== ENCOUNTER 2020-05-31 11:55 | Emergency (ER) | payer MEDICARE, OTHER ==
--- OUTSIDE RECORDS SUMMARY | 2020-05-31 12:00 | EXTERNAL MEDICAL SUMMARY RPT | Continuity of Care Document ---
:1955 Demographics Phone Unavailable Preferred Language Uzbek Marital Status Unknown Taoist Affiliation Unknown Race Unknown Ethnic Group Unknown Author Organization [place] Address [address] [phone] Phone Care Team Providers Name Role Phone Tiny Unavailable Unavailable Akhtar Unavailable Unavailable Problems date description facility 20200317 Lichen sclerosus et atrophicus [facility] 20200317 Postmenopausal atrophic vaginitis [facility] Medications date description facility 20200308 venlafaxine 75 MG Oral Tablet [facility] 20200308 venlafaxine 75 MG Oral Tablet [facility] Procedures date description facility 20200307 [facility] date description facility 20200307 [facility] date description facility 20200308 [facility] date description facility 20200308 [facility] date description facility 20200316 [facility] date description facility 20200317 [facility] Vital Signs date measurement value source 20200308 BMI 26.9 kg/m2 20200308 BP_diastolic 70 mm[Hg] 20200308 BP_systolic 120 mm[Hg] 20200308 heart_rate 75 /min 20200308 height_metric 175.26 cm 20200308 height_standard 69 in 20200308 weight_metric 82.58 kg 20200308 weight_standard 182.06 lb date measurement value source 20200317 BMI 27.0 kg/m2 20200317 BP_diastolic 76 mm[Hg] 20200317 BP_systolic 112 mm[Hg] 20200317 heart_rate 67 /min 20200317 height_metric 175.26 cm 20200317 height_standard 69 in 20200317 weight_metric 37.65 kg 20200317 weight_standard 83.01 lb Social History date description facility [id number]
--- OUTSIDE RECORDS SUMMARY | 2020-05-31 12:28 | EXTERNAL MEDICAL SUMMARY RPT | Continuity of Care Document ---
:1955 Demographics Phone Unavailable Preferred Language Icelandic Marital Status Unknown Mosque Affiliation Unknown Race Unknown Ethnic Group Unknown Author Organization [place] Address [address] [phone] Phone Care Team Providers Name Role Phone Tiny Unavailable Unavailable Akhtar Unavailable Unavailable Problems date description facility 20200317 Lichen sclerosus et atrophicus [facility] 20200317 Postmenopausal atrophic vaginitis [facility] Medications date description facility 20200308 venlafaxine 75 MG Oral Tablet [facility] 20200308 venlafaxine 75 MG Oral Tablet [facility] Procedures date description facility 20200307 [facility] date description facility 20200307 [facility] date description facility 20200308 [facility] date description facility 20200308 [facility] date description facility 20200316 [facility] date description facility 20200317 [facility] Vital Signs date measurement value source 20200308 [...] 83.01 lb Social History date description facility [id number]
[2020-05-31] MEDS ORDERED: oxyCODONE 5 MG TABLET PO STA (13:44)
[2020-05-31] MEDS ORDERED: LIDOCAINE 2%-EPI 1:100000 20 ML MDV SUBQ STA (13:44)
--- NOTE | 2020-05-31 14:26 | ED Physician Documentation ---
History of Present Illness - Stated complaint Stated Complaint: HEAD PX - Chief complaint Chief Complaint: General - History obtained from History obtained from: Patient - History of Present Illness Timing: Chronic Pain level max: 5 Pain level now: 4 - Additonal information Additional information: Patient a 65-year-old female who presents to the emergency department stating that she has a lump on the right side of her head. This is been there for several years, comes and goes. She states she has had a cyst removed twice in this area. She states it is now red and swollen. No fevers. No chills. Worse with palpation, nothing makes it better. Review of Systems Constitutional: denies: Fever, Chills GI: denies: Vomiting, Diarrhea Skin: denies: Rash Musculoskeletal: denies: Neck pain, Back pain Neurologic: denies: Focal weakness, Numbness, Head injury PD PAST MEDICAL HISTORY - Past Medical History Past Medical History: Yes Cardiovascular: None Respiratory: Shortness of breath Endocrine/Autoimmune: None GI: GERD : Frequency HEENT: Dental implants Psych: Depression, Anxiety, Panic attacks Musculoskeletal: Osteoarthritis Derm: Herpes zoster - Past Surgical History Past Surgical History: Yes General: Cholecystectomy, Colonoscopy, EGD /BOBBIN FIXER: Dilation and currettage, Other - Present Medications Home Medications: Ambulatory Orders Medication Instructions Recorded Confirmed Venlafaxine HCl [Venlafaxine HCl 150 mg PO DAILY PM 11/19/16 05/31/20 ER] HYDROcod/ACETAM 5/325 [[place] 5/325] 1 - 2 ea PO Q6H PRN #14 tablet 05/31/20 Sulfamethox/Trimeth 800/160 1 each PO BID #14 tablet 05/31/20 [Bactrim Ds 800/160] cephALEXin [Keflex] 500 mg PO Q6H #28 cap 05/31/20 - Allergies Allergies/Adverse Reactions: Allergies Allergy/AdvReac Type Severity Reaction Status Date / Time No Known Drug Allergies Allergy Verified 05/31/20 12:06 - Social History Does the pt smoke?: No Smoking Status: Never smoker Does the pt drink ETOH?: No Does the pt have substance abuse?: No - Immunizations Immunizations are current?: Yes - POLST Patient has POLST: No PD ED PE NORMAL - Vitals Vital signs reviewed: Yes - General General: Alert and oriented X 3, No acute distress - HEENT HEENT: Moist mucous membranes, Other (2 by 2 cm cystic structure to the right temporal area. Indurated, fluctuant. No drainage.) - Neck Neck: Supple, no meningeal sign - Cardiac Cardiac: RRR - Respiratory Respiratory: No respiratory distress, Clear bilaterally - Derm Derm: Warm and dry - Neuro Neuro: Alert and oriented X 3 - Psych Psych: Normal mood, Normal affect Results - Vitals Vitals: Vital Signs - 24 hr 05/31/20 05/31/20 12:00 14:39 Temperature 35.5 C L 37.1 C Heart Rate 103 H 64 Respiratory 22 20 Rate Blood Pressure 147/87 H 117/90 H O2 Saturation 97 98 Oxygen O2 Source Room air Procedures - Abscess I&D (location) R parietal/temporal Preparation: Confirmed with ultrasound, Chlorhexadine, Lidocaine 2 %, With epi Incision: Incised with scalpel, Purulent drainage, Loculations broken, Packed Other: Pt tolerated well, Dressing applied, Antibiotic prescribed PD MEDICAL DECISION MAKING - ED course Complexity details: considered differential, d/w patient ED course: 65-year-old female with what appears to be an infected sebaceous cyst on the right side of her head. This was incised and drained. Tolerated well. We will place on antibiotics for home. Patient counseled regarding signs and symptoms for which I believe and urgent re-evaluation would be necessary. Patient with good understanding of and agreement to plan and is comfortable going home at this time This document was made in part using voice recognition software. While efforts are made to proofread this document, sound alike and grammatical errors may occur. Departure - Departure Disposition: 01 Home, Self Care Clinical Impression: Sebaceous cyst Condition: Good Instructions: ED Cyst Sebaceous Infec IandD Follow-Up: Heladio Braun DO [Primary Care Provider] - Within 1 week [facility] [Provider Group] - Within 1 week Prescriptions: Sulfamethox/Trimeth 800/160 [Bactrim Ds 800/160] 1 each PO BID #14 tablet cephALEXin [Keflex] 500 mg PO Q6H #28 cap HYDROcod/ACETAM 5/325 [[place] 5/325] 1 - 2 ea PO Q6H PRN #14 tablet PRN Reason: Pain Comments: Call [facility] for a follow up appointment to remove the cyst sac when the infection has cleared. Please obtain your records from your prior surgeries before that appointment. Return if you worsen the packing can be removed in 2 days. If it falls out prior to that, this is fine. Keep the area clean. Take all antibiotics until gone. Do not drink alcohol or drive while on narcotic pain medicine. Note that many narcotic pain relievers also contain tylenol/acetaminophen. Please ensure that your total dose of acetaminophen from all sources does not exceed 3 grams (3000mg) per day. You may constipated on this medication, take a stool softener such as "Colace" twice a day while you are on it. Also recommend a evht-acm-plqowav laxative such as senna or MiraLAX any day that you do not have a bowel movement. If you received narcotic pain medication in the emergency department, do not drive or operate machinery for the next 24 hours. Discharge Date/Time: 05/31/20 14:53
[2020-05-31 14:39] VITALS: BP 117/90
== END 2020-05-31 14:53 | disposition home or self-care (01) ==
LOC: ED 11:55
DX: L72.3 Sebaceous cyst (principal)
CPT/HCPCS: 10060; 99283; 99284; A9270

== ENCOUNTER 2020-06-10 13:33 | Outpatient (CLI) | payer MEDICARE, OTHER ==
[2020-06-10] MEDS ORDERED: ALBUTEROL 1 PUFF INH STA (15:00)
== END 2020-06-10 13:34 | disposition home or self-care (01) ==
LOC: RT 13:33
PROVIDERS: ATTEND Family Medicine
DX: R06.00 Dyspnea, unspecified (principal)
CPT/HCPCS: 94060; 94664

== ENCOUNTER 2020-07-24 20:46 | Emergency (ER) | payer MEDICARE, OTHER ==
--- OUTSIDE RECORDS SUMMARY | 2020-07-24 20:50 | EXTERNAL MEDICAL SUMMARY RPT | Continuity of Care Document ---
:1955 Demographics Phone Unavailable Preferred Language Chinese Marital Status Unknown Cheondoism Affiliation Unknown Race Unknown Ethnic Group Unknown Author Organization [place] Address [address] [place] [address] Phone Care Team Providers Name Role Phone Lemme Unavailable Unavailable Allergies Encounters Medications Problems date description facility [id number] Follicular cyst of the skin and subcuta neous tissue, [facility] unspeci Results
--- OUTSIDE RECORDS SUMMARY | 2020-07-24 20:53 | EXTERNAL MEDICAL SUMMARY RPT | Continuity of Care Document ---
:1955 Demographics Phone Unavailable Preferred Language Finnish Marital Status Unknown Mandaeism Affiliation Unknown Race Unknown Ethnic Group Unknown Author Organization [place] Address [address] [place] [address] Phone Care Team Providers Name Role Phone Lemme Unavailable Unavailable Allergies Encounters Medications Problems date description facility [id number] Follicular cyst of the skin and subcuta neous tissue, [facility] unspeci Results
[2020-07-24] MEDS ORDERED: DEXAMETHASONE 10 MG/ML VIAL PO STA (22:34)
[2020-07-24] MEDS ORDERED: CHERRY SYRUP 10 ML UDC PO ONE (22:34)
[2020-07-24] MEDS ORDERED: AMOX/CLAV 875 MG/125 MG TABLET PO STA (22:35)
[2020-07-24 23:24] VITALS: BP 128/90
--- NOTE | 2020-07-24 23:34 | ED Physician Documentation ---
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 She has persistent swelling to the area and she is concerned that there is tracking into her ear her by in her nose from this area of surgery. She states that the ceramic painter that remove this tumor was unfamiliar with the this type of tumor and has referred her to a neurologist. The patient is in tears trying to describe her situation. I was able to elicit a history from the patient of a cough over the past 2 months that is waxing and waning she has periodically choking on phlegm and has some postnasal drainage. She has not had fever. Review of Systems Constitutional: denies: Fever Eyes: reports: Loss of vision (chronic to right eye since shingles). denies: Decreased vision Ears: denies: Ear pain Nose: reports: Rhinorrhea / runny nose, Congestion Throat: denies: Sore throat Cardiac: denies: Chest pain / pressure, Palpitations Respiratory: reports: Cough. denies: Dyspnea GI: denies: Nausea, Vomiting : denies: Dysuria, Frequency PD PAST MEDICAL HISTORY - Past Medical History Past Medical History: Yes Cardiovascular: None Respiratory: Shortness of breath Endocrine/Autoimmune: None GI: GERD : Frequency HEENT: Dental implants Psych: Depression, Anxiety, Panic attacks Musculoskeletal: Osteoarthritis Derm: Herpes zoster - Past Surgical History Past Surgical History: Yes General: Cholecystectomy, Colonoscopy, EGD /LYRIC WRITER: Dilation and currettage, Other - Present Medications Home Medications: Ambulatory Orders Medication Instructions Recorded Confirmed Venlafaxine HCl [Venlafaxine HCl 150 mg PO DAILY PM 11/19/16 05/31/20 ER] HYDROcod/ACETAM 5/325 [[place] 5/325] 1 - 2 ea PO Q6H PRN #14 tablet 05/31/20 Sulfamethox/Trimeth 800/160 1 each PO BID #14 tablet 05/31/20 [Bactrim Ds 800/160] cephALEXin [Keflex] 500 mg PO Q6H #28 cap 05/31/20 Amox/Clav 875/125 [Augmentin] 1 each PO Q12H #20 tablet 07/24/20 - Allergies Allergies/Adverse Reactions: Allergies Allergy/AdvReac Type Severity Reaction Status Date / Time No Known Drug Allergies Allergy Verified 05/31/20 12:06 - Social History Does the pt smoke?: No Smoking Status: Never smoker Does the pt drink ETOH?: No Does the pt have substance abuse?: No - Immunizations Immunizations are current?: Yes - POLST Patient has POLST: No PD ED PE NORMAL - Vitals Vital signs reviewed: Yes (Tachycardic and hypertensive) - General General: Alert and oriented X 3, Well developed/nourished, Other (The patient is quite emotional describing her symptoms.) - HEENT HEENT: PERRL, EOMI, Other (The right TM is erythematous along the umbo with rounding of the umbo the left is clear. There is fluctuance to the area of her prior surgery which the patient states is unchanged over the past 4 weeks. The area is minimally tender. There is no specific inflammation associated with this.) - Neck Neck: Supple, no meningeal sign, No bony TTP - Cardiac Cardiac: RRR, No murmur - Respiratory Respiratory: No respiratory distress, Clear bilaterally - Abdomen Abdomen: Normal bowel sounds, Soft, Non tender, Non distended, No organomegaly - Back Back: No CVA TTP, No spinal TTP - Derm Derm: Normal color, Warm and dry, No rash - Extremities Extremities: No deformity - Neuro Neuro: Alert and oriented X 3, lockstitch lining setter 2-12 intact, No motor deficit, No sensory deficit, Normal speech Eye Opening: Spontaneous Motor: Obeys Commands Verbal: Oriented GCS Score: 15 - Psych Psych: Normal affect, Other (The patient's mood is anxious and defeated) Results - Vitals Vitals: Vital Signs - 24 hr 07/24/20 07/24/20 07/24/20 20:59 21:55 23:09 Temperature 37.1 C 37.1 C 37.0 C Heart Rate 117 H 117 H 90 Respiratory 20 20 20 Rate Blood Pressure 132/91 H 132/91 H 128/90 H O2 Saturation 97 97 98 07/24/20 23:44 Temperature 37 C Heart Rate 90 Respiratory 20 Rate Blood Pressure 128/90 H O2 Saturation 98 Oxygen O2 Source Room air PD MEDICAL DECISION MAKING - ED course Complexity details: considered differential, d/w patient ED course: 65-year-old female who has had a cough the past 2 months has a tumor that was removed from her scalp 4 weeks ago and following that she has had an increase in the amount of pain she has had on the right side of her face and increased drainage from her nose and down the back of her throat. She has otitis on exam on the right side and she has a area where she has been operated on that has some fluctuance to it that has been present for the past month. This area does not appear to have changed in the past month. The patient is sobbing feeling that she is unable to get help and unable to get answers about her condition. She feels that her tumor is related to everything that she is experiencing and here on exam I found that she had otitis on the right side and we have treated this and I have offered this is the treatment we have available for us and have asked her to follow-up with the ceramic painter who did the surgery for further evaluation of the tumor site itself. She is administered dexamethasone and Aug mentin we will place her on a course of Augmentin and we will provide some pain relief. She is given some Toradol here in the emergency department Departure - Departure Disposition: 01 Home, Self Care Clinical Impression: Otitis media Qualifiers: Otitis media type: suppurative Chronicity: acute Laterality: right Recurrence: not specified as recurrent Spontaneous tympanic membrane rupture: without spontaneous rupture Qualified Code(s): H66.001 - Acute suppurative otitis media without spontaneous rupture of ear drum, right ear Condition: Stable Instructions: ED Otitis Media Acute Adult Follow-Up: Heladio Braun DO [Primary Care Provider] - Prescriptions: Amox/Clav 875/125 [Augmentin] 1 each PO Q12H #20 tablet Comments: Today the site of your surgery does not appear to be specifically infected. There is an infection in the middle ear and may be part of what your symptoms are related to. We are treating this aggressively. Take the antibiotic twice per day and follow-up with your primary care doctor. My recommendation for the surgical site is to follow-up with the surgeon that did the procedure. Discharge Date/Time: 07/24/20 23:44
== END 2020-07-24 23:44 | disposition home or self-care (01) ==
LOC: ED 20:46
DX: H66.001 Acute suppurative otitis media without spontaneous rupture of ear drum, right ear (principal)
CPT/HCPCS: 99282; 99284; A9270

== ENCOUNTER 2021-04-05 09:50 | Day surgery (SDC) | payer MEDICARE, OTHER ==
[~2021-04-05 09:50] MED LIST: CYCLOPENTOLATE 1% OPHTH DROPS 2 ML ONE; KETOROLAC 0.45% OPHTH DROPS ONE; PHENYLEPHRINE 2.5% OPHTH 2 ML DROPS ONE; PROPARACAINE 0.5% OPHTH DROPS 15 ML ONE
[2021-04-05] MEDS ORDERED: LACTATED RINGERS 1,000 ML IV ONE (10:06)
[2021-04-05] MEDS ORDERED: MIDAZOLAM 2 MG/2 ML VIAL ONE (10:44)
--- NOTE | 2021-04-05 10:59 | ANESTHESIA ---
Pre-Anesthesia VS, & Labs - Diagnosis right eye cataract - Procedure right CATIOL Vital Signs: Temp Pulse Resp BP Pulse Ox 36.4 C L 64 20 120/78 97 04/05/21 10:06 04/05/21 10:06 04/05/21 10:06 04/05/21 10:06 04/05/21 10:06 Height: 5 ft 8 in Weight (kg): 81.6 kg Body Mass Index: 27.3 BMI Classification: Overweight - NPO >8 hours - Is Patient ?: No Home Medications and Allergies Home Medications: Ambulatory Orders Timolol 0.5% Ophth Drops [Timoptic 0.5% Ophth Drops] 1 drops TOP BID 04/04/21 Venlafaxine HCl [Venlafaxine HCl ER] 150 mg PO DAILY PM 11/19/16 Timolol 0.5% Ophth Drops [Timoptic 0.5% Ophth Drops] 1 drops TOP BID 04/04/21 Allergies/Adverse Reactions: Allergies Allergy/AdvReac Type Severity Reaction Status Date / Time No Known Drug Allergies Allergy Verified 04/04/21 13:02 Anes History & Medical History - Anesthetic History Anesthesia Complications: reports: No previous complications Family history of Anesthesia Complications: Denies Family history of Malignant Hyperthermia: Denies - Medical History Cardiovascular: reports: None Pulmonary: reports: Shortness of breath Gastrointestinal: reports: GERD Urinary: reports: Frequency Musculoskeletal: reports: Osteoarthritis Endocrine/Autoimmune: reports: None Skin: reports: Herpes zoster Smoking Status: Never smoker - Surgical History General: reports: Cholecystectomy, Colonoscopy, EGD Gynecologic: reports: Dilation and currettage, Other Exam General: Alert, Oriented x3, Cooperative, No acute distress Dental: WNL Mouth Openin Fingerbreadth Plan Anesthesia Type: MAC Consent for Procedure(s) Verified and Reviewed: Yes Code Status: Attempt Resuscitation ASA classification: 2-Mild systemic disease Is this case an emergency?: No
[2021-04-05] MEDS ORDERED: EPINEPHrine 1 MG/ML AMP IR ONE (11:30)
[2021-04-05] MEDS ORDERED: BRIMONIDINE 0.2% OPHTH DROPS 5 ML OPTH ONE (11:30)
[2021-04-05] MEDS ORDERED: TIMOLOL 0.5% OPHTH DROPS OPTH ONE (11:30)
[2021-04-05] MEDS ORDERED: BSS/LIDOCAINE/EPINEPHRINE 1 ML SYRINGE IO ONE (11:31)
[2021-04-05] MEDS ORDERED: VANCOMYCIN OPHTHALMI 8MG/0.8ML 8 MG/0.8 ML SYRINGE IO ONE (11:31)
[2021-04-05] MEDS ORDERED: PROPARACAINE 0.5% OPHTH DROPS 15 ML EACHEYE ONE (11:31)
[2021-04-05] MEDS ORDERED: TRIAMCIN/MOXIFLOX OPHTHALMIC 0.6 ML VIAL IO ONE ×2 (11:31→13:43)
[2021-04-05] MEDS ORDERED: fentaNYL 100 MCG/2 ML VIAL ONE (11:36)
[2021-04-05] MEDS ORDERED: LACTATED RINGERS 500 ML IV ONE (11:48)
[2021-04-05 12:04] VITALS: BP 117/70
--- NOTE | 2021-04-05 12:15 | ANESTHESIA POST OP EVALUATION ---
Anesthesia Post Eval - Post Anesthesia Eval Vitals: Last Vital Signs Temp 36.3 C L 04/05/21 12:04 Pulse 96 04/05/21 12:04 Resp 16 04/05/21 12:04 BP 117/70 04/05/21 12:04 Pulse Ox 100 04/05/21 12:04 CV Function Including HR & BP: Stable Pain Control: Satisfactory Nausea & Vomiting: Negative Mental Status: Baseline Respiratory Status: Airway Patent Hydration Status: Satisfactory Anesthesia Complications: None
--- NOTE | 2021-04-05 13:10 | OPERATIVE REPORT ---
Operative Report - Other Other Information/Narrative: Date of Surgery: 04/05/21 Preop Dx: Visually significant cataract right eye. This was the first cataract surgery. Postop Dx: Same Procedure: Phacoemulsification with posterior chamber intraocular lens implant right eye Surgeon: Dr. Luis Hernandez Anesthesia: Monitored anesthesia care Complications: None Operative Indications: This is a 66-year-old F with progressive vision loss in the right eye due to 3+ nuclear sclerotic, 3+ cortical, and 3-4+ posterior subcapsular cataract. Best corrected visual acuity was hand motion with glare to light perception vision in the right eye. Indications for surgery were: - Overall decrease in vision - Difficulty seeing words on a computer screen - Difficulty reading - Difficulty seeing words, closed captions, or game scores on TV - Difficulty seeing street signs - Difficulty driving in low light or at night - Difficulty driving at night because of headlights from other vehicles - Difficulty with glare or bright lights in any situation - Difficulty tracking a golf ball - Decreased acuity with firearms The patient was consented at length concerning the risks and benefits of cataract surgery after which the patient expressed a desire to proceed with surgery. Operative Procedure: The patient was taken into OR#3 and placed under monitored anesthesia care. A surgical time-out was conducted confirming correct patient, correct procedure, and correct surgical site. The patient was given topical anesthesia and then prepped and draped in the usual sterile fashion. The eye was entered at the 6 and 3 oclock positions. Intracameral Shugarcaine was injected into the anterior chamber followed by a dispersive viscoelastic. A continuous-tear curvilinear capsulorhexis was performed. 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 The nucleus was hydrodissected and phacoemulsified. The cortex was evacuated using automated infusion and aspiration. A cohesive viscoelastic was injected into the capsular bag and a 23.5 diopter intraocular lens was inserted into the bag. Infusion and aspiration were used to evacuate the viscoelastic materials from the eye. The wounds were hydrated and found to be leaking. A 10-0 Vicryl suture was tied across the phaco wound and the eye inflated to physiologic pressure using balanced salt solution. Approximately 0.25ml of a mixture of triamcinolone and moxifloxacin was injected trans-sclerally into the vitreous in the inferotemporal quadrant using a 30 gauge cannula. An additional 0.55ml of a mixture of triamcinolone, moxifloxacin, and vancomycin was injected subconjunctivally in the superior quadrant for infection and inflammation prophylaxis. Wound integrity was checked with Weck-Yasmin sponges. The patient was taken from the operating room in good condition and given post-op instructions.
[2021-04-05] MEDS ORDERED: BRIMONIDINE 0.2% OPHTH DROPS 5 ML ONE (13:43)
[2021-04-05] MEDS ORDERED: TIMOLOL 0.5% OPHTH DROPS ONE (13:43)
[2021-04-05] MEDS ORDERED: BSS/LIDOCAINE/EPINEPHRINE 1 ML VIAL ONE (13:44)
== END 2021-04-05 09:51 | disposition home or self-care (01) ==
LOC: SDS 09:50
PROVIDERS: ATTEND Ophthalmology
DX: H25.811 Combined forms of age-related cataract, right eye (principal)
CPT/HCPCS: 66984; A9270; J3490; J7120

== ENCOUNTER 2021-04-17 14:12 | Emergency (ER) | payer MEDICARE, OTHER ==
[2021-04-17 14:25] VITALS: BP 129/80
--- NOTE | 2021-04-17 15:00 | ED Physician Documentation ---
PD HPI SKIN - Stated complaint Stated Complaint: HEADACHE - Chief complaint Chief Complaint: Wound - History obtained from History obtained from: Patient - History of Present Illness Timing - onset: How many days ago (2-3) Timing - duration: Days Timing - details: Gradual onset, Still present Location: Face (right parietal scalp with local swelling and tenderness, with superficial ulceration. mild clear drainage.) Quality / character: Painful, Discolored (some redness.), Swelling Associated symptoms: Facial swelling (right scalp.). No: Fever, Myalgias, N/V/D Contributing factors: No: Recent illness Similar symptoms before: Diagnosis (has had cysts on scalp with excision in the past.) Recently seen: Surgery (glaucoma surgery right eye 2 weeks ago. No current worsening vision. Has some redness and conjunctival swelling right eye the past 1-2 days.) Review of Systems Constitutional: denies: Fever, Chills Eyes: reports: Other (denies eye pain.). denies: Loss of vision, Decreased vision (no worse than baseline) Nose: denies: Rhinorrhea / runny nose, Congestion Throat: denies: Sore throat Respiratory: denies: Cough GI: denies: Nausea, Vomiting Neurologic: denies: Focal weakness, Numbness, Headache PD PAST MEDICAL HISTORY - Past Medical History Past Medical History: Yes Cardiovascular: None Respiratory: Shortness of breath Neuro: None Endocrine/Autoimmune: None GI: GERD OPTOMETRIC TECH: None : Frequency HEENT: Glaucoma, Dental implants Psych: Depression, Anxiety, Panic attacks Musculoskeletal: Osteoarthritis Derm: Herpes zoster - Past Surgical History Past Surgical History: Yes General: Cholecystectomy, Colonoscopy, EGD /OPTOMETRIC TECH: Dilation and currettage, Other Derm: Other (she states cyst excision right parietal area 2 years ago with skin flaps to cover area, and several large scars. ) - Present Medications Home Medications: Ambulatory Orders Medication Instructions Recorded Confirmed Venlafaxine HCl [Venlafaxine HCl 150 mg PO DAILY PM 11/19/16 04/17/21 ER] Timolol 0.5% Ophth Drops [Timoptic 1 drops TOP BID 04/04/21 04/17/21 0.5% Ophth Drops] Doxycycline Hyclate 100 mg PO BID 7 Days #14 cap 04/17/21 Mupirocin 2% Oint [Bactroban 2% 1 applic TOP TID #15 gm 04/17/21 Oint] Sulfacetamide Sodium 3 drops LEFTEYE QID 5 Days #15 ml 04/17/21 - Allergies Allergies/Adverse Reactions: Allergies Allergy/AdvReac Type Severity Reaction Status Date / Time No Known Drug Allergies Allergy Verified 04/17/21 14:18 - Social History Does the pt smoke?: No Smoking Status: Former smoker Does the pt drink ETOH?: No Does the pt have substance abuse?: No - Immunizations Immunizations are current?: Yes - POLST Patient has POLST: No PD ED PE NORMAL - Vitals Vital signs reviewed: Yes - General General: Alert and oriented X 3, No acute distress, Well developed/nourished - HEENT HEENT: PERRL, EOMI (no light sensitivity. RIght eye with conjunctival swelling and redness. No discahrge/crusting. ), Other (nose and face without tenderness/rash. ) - Neck Neck: Supple, no meningeal sign, No adenopathy - Cardiac Cardiac: RRR, No murmur - Respiratory Respiratory: Clear bilaterally - Derm Derm: Normal color, Warm and dry, Other (right parietal area with 1 cm diameter superficial ulceration without drainage nor discharge. Swelling below it with some feeling of fluctuance. The skin is moderately red without warmth. No blistering. ) - Neuro Neuro: Alert and oriented X 3, No motor deficit, No sensory deficit, Normal speech Results - Vitals Vitals: Vital Signs - 24 hr 04/17/21 14:18 Temperature 36.4 C L Heart Rate 78 Respiratory 18 Rate Blood Pressure 129/80 O2 Saturation 97 Oxygen O2 Source Room air - Labs Labs: Microbiology 04/17/21 15:29 Wound Culture - Preliminary Face - Right Side Procedures - Abscess I&D (location) right parietal scalp Preparation: Lidocaine 1% Incision: Incised with scalpel, Other (no notable drainage. Got some blood and minimal clear fluid. Cultures obtained for VZV and bacterial culture.) Other: Pt tolerated well, Antibiotic prescribed PD MEDICAL DECISION MAKING - ED course Complexity details: considered differential (concern for infection in area of old scar tissue. Would cover for potential staph. Consider viral as well, though not a patchy rash. I wonder if she autotransfered from skin to right eye. NO skin rash intervening bewtween the sites. ), d/w patient Departure - Departure Disposition: 01 Home, Self Care Clinical Impression: Facial swelling Condition: Stable Record reviewed to determine appropriate education?: Yes Instructions: ED Staph Infec Abx Tx Only Follow-Up: Heladio Braun DO [Primary Care Provider] - Prescriptions: Mupirocin 2% Oint [Bactroban 2% Oint] 1 applic TOP TID #15 gm Doxycycline Hyclate 100 mg PO BID 7 Days #14 cap Sulfacetamide Sodium 3 drops LEFTEYE QID 5 Days #15 ml Comments: I was anticipating more fluid out from the incision at the site but only got some blood with a little bit of fluid. We did doing cultures and herpetic study for shingles on those. The culture and test should take a couple of days for the results. For now the lesion looks most likely a local skin infection in the area of prior scar tissue. Commonly this will be a staph aureus infection so I will treated with antibiotics targeted that way for now. Doxycycline antibiotic twice daily for 7 days. Cleanse the area several times daily and apply mupirocin antibiotic ointment as well. Tylenol or ibuprofen as needed for pains. There is one stitch in the area to control the bleeding after I did the incision. That will need removing in about a week. Discharge Date/Time: 04/17/21 16:04
[2021-04-17] MEDS ORDERED: MUPIROCIN 2% OINT 1 GM TOP STA (15:34)
[2021-04-17] MEDS ORDERED: DOXYCYCLINE 100 MG TABLET PO STA (15:34)
== END 2021-04-17 16:04 | disposition home or self-care (01) ==
LOC: ED 14:12
DX: R22.0 Localized swelling, mass and lump, head (principal); Z87.891 Personal history of nicotine dependence
CPT/HCPCS: 10060; 81599; 87070; 87205; 99283; 99284; A9270

== ENCOUNTER 2021-04-21 19:26 | Outpatient (CLI) | payer MEDICARE, OTHER | END 2021-04-21 23:59 | disposition critical access hospital (66) | LOC: EMS 19:26 | DX: H57.11 Ocular pain, right eye (principal); R51.9 Headache, unspecified | CPT/HCPCS: A0425; A0427 ==

== ENCOUNTER 2021-04-21 19:31 | Emergency (ER) | payer MEDICARE, OTHER ==
--- NOTE | 2021-04-21 19:53 | ED Physician Documentation ---
PD HPI HEENT - Stated complaint Stated Complaint: EYE/HEAD PX - Chief complaint Chief Complaint: Heent - History obtained from History obtained from: Patient, EMS - History of Present Illness Timing - onset: Today Timing - details: Gradual onset Pain level max: 8 Pain level now: 0 Improves: Nothing Worsens: Other (no exacerbating factors) Associated symptoms: Headache. No: Fever, Congestion, Rhinorrhea, Trismus, Unable to swallow, Swollen nodes, Facial swelling, Cough Recently seen: Clinic - Additional information Additional information: BIBA. c/o right retroorbital headache. She was T+R from this ED 4 days ago for similar symptoms, rx doxycycline but symptoms persist. Culture from right scalp lesion showed rare WBC, rare gram (+) cocci, as well as normal jalyn. Same sample was VZV negative. She has she had shingles/zoster approximately 5 years ago in right V1 distribution and has had recurrent subcutaneous cysts since then in same distribution requiring multiple surgeries for excision of these cysts. She says her vision in her right eye over the years since getting shingles has gradually worsened and that she can now only see light vs dark shadows. 2 weeks ago she had cataract surgery right eye; she says her oil pumper thinks this procedure will restore some degree of eyesight (per patient). She describes the right-sided headache like its going to explode, she says said looks like my eye is sunken on right. Review of Systems Constitutional: reports: Reviewed and negative Eyes: reports: Loss of vision. denies: Decreased vision, Photophobia, Discharge, Irritation Ears: reports: Reviewed and negative Nose: reports: Reviewed and negative Cardiac: reports: Reviewed and negative Respiratory: reports: Reviewed and negative Neurologic: reports: Headache. denies: Generalized weakness, Focal weakness, Numbness PD PAST MEDICAL HISTORY - Past Medical History Cardiovascular: None Respiratory: Shortness of breath Neuro: None Endocrine/Autoimmune: None GI: GERD PEDIATRIC LPN: None : Frequency HEENT: Glaucoma, Dental implants Psych: Depression, Anxiety, Panic attacks Musculoskeletal: Osteoarthritis Derm: Herpes zoster - Past Surgical History Past Surgical History: Yes General: Cholecystectomy, Colonoscopy, EGD /PEDIATRIC LPN: Dilation and currettage, Other Derm: Other (she states cyst excision right parietal area 2 years ago with skin flaps to cover area, and several large scars. ) - Present Medications Home Medications: Ambulatory Orders Medication Instructions Recorded Confirmed Venlafaxine HCl [Venlafaxine HCl 150 mg PO DAILY PM 11/19/16 04/17/21 ER] Timolol 0.5% Ophth Drops [Timoptic 1 drops TOP BID 04/04/21 04/17/21 0.5% Ophth Drops] Doxycycline Hyclate 100 mg PO BID 7 Days #14 cap 04/17/21 Mupirocin 2% Oint [Bactroban 2% 1 applic TOP TID #15 gm 04/17/21 Oint] Sulfacetamide Sodium 3 drops LEFTEYE QID 5 Days #15 ml 04/17/21 Erythromycin Base [Erythromycin 1 applic RIGHTEYE QID 4 Days #3.5 04/18/21 Ophthalmic Ointment] gm traMADol [Ultram] 50 - 100 mg PO Q6H PRN #14 tablet 04/22/21 - Allergies Allergies/Adverse Reactions: Allergies Allergy/AdvReac Type Severity Reaction Status Date / Time No Known Drug Allergies Allergy Verified 04/17/21 14:18 - Social History Does the pt smoke?: No Smoking Status: Former smoker Does the pt drink ETOH?: No Does the pt have substance abuse?: No - Immunizations Immunizations are current?: Yes - POLST Patient has POLST: No PD ED PE NORMAL - Vitals Vital signs reviewed: Yes - General General: Alert and oriented X 3, No acute distress, Well developed/nourished - HEENT HEENT: PERRL, EOMI, Moist mucous membranes - Neck Neck: Supple, no meningeal sign - Cardiac Cardiac: RRR, No murmur - Respiratory Respiratory: No respiratory distress, Clear bilaterally - Abdomen Abdomen: Soft, Non tender PD ED PE EXPANDED - HEENT HEENT: PERRL HEENT Visual: 1 - swelling (healing , nearly flat 2 cm diameter area of nontender swelling with solitary suture in center) 2 - swelling (trace/mild nontender swelling without fluctuance) Results - Vitals Vitals: Oxygen O2 Source Room air - Labs Labs: Laboratory Tests 04/21/21 04/21/21 04/21/21 20:45 20:45 20:45 WBC 6.5 RBC 4.47 Hgb 13.4 Hct 41.0 MCV 91.7 MCH 30.0 MCHC 32.7 RDW 14.0 Plt Count 300 MPV 9.7 Neut # (Auto) 3.8 Lymph # (Auto) 1.8 Mathews # (Auto) 0.6 Eos # (Auto) 0.1 Baso # (Auto) 0.1 Absolute Nucleated RBC 0.00 Nucleated RBC % 0.0 ESR 33 H Sodium 137 Potassium 3.8 Chloride 98 L Carbon Dioxide 28 Anion Gap 11.0 BUN 27 H Creatinine 1.1 H Estimated GFR (MDRD) 50 L Glucose 79 Calcium 9.2 C-Reactive Protein < 1.0 - Rads (name of study) CT orbits Radiology: Prelim report reviewed, See rad report PD MEDICAL DECISION MAKING - ED course Complexity details: reviewed results, re-evaluated patient, considered differential, d/w patient ED course: c/o right periorbital pain, but mostly right retro-orbital PIERSON. She has a history right V1 herpes zoster several years ago. IOP right eye measured with tonopen. Results were 8 and 7 (with each of these two readings requiring 10 readings to result in those numbers as averages of the ten readings each per results). She had some degree of relief of pain with IV morphine; prior to d/c, results d/w patient including blood tests, CT, and IOP measurements. Tests performed tonight do not reveal etiology of her right retro- orbital headache at this time. She is given tramadol and rx for same, instructed to follow up with her oil pumper, but return to ED if worse A prescription for tramadol (pain medication) has been electronically submitted to [facility]. Based on tonight's tests and physical exam, the cause of your pain is not apparent at this time. Follow up with your oil pumper, next available appointment Departure - Departure Disposition: 01 Home, Self Care Clinical Impression: Eye pain Qualifiers: Laterality: right Qualified Code(s): H57.11 - Ocular pain, right eye Condition: Good Instructions: ED Cephalgia Unspecified Follow-Up: Luis Hernandez MD [Provider Admit Priv/Credential] - Prescriptions: traMADol [Ultram] 50 - 100 mg PO Q6H PRN #14 tablet PRN Reason: Pain Comments: A prescription for tramadol (pain medication) has been electronically submitted to [facility] in [place]. Based on tonight's tests and physical exam, the cause of your pain is not apparent at this time. Follow up with your oil pumper, next available appointment Discharge Date/Time: 04/22/21 06:40
[2021-04-21] MEDS ORDERED: MORPHINE 2 MG/ML CARPUJECT IVP STA ×2 (20:59→23:00)
[2021-04-21 21:04] LABS: BASOPHILS # (AUTO) 0.1 10^3/uL (0.0-0.1); BASOPHILS % (AUTO) 0.8 %; EOSINOPHILS # (AUTO) 0.1 10^3/uL (0.0-0.7); HGB - HEMOGLOBIN 13.4 g/dL (12.0-16.0); LYMPHOCYTES # (AUTO) 1.8 10^3/uL (1.5-3.5); LYMPHOCYTES % (AUTO) 28.4 %; MEAN CORPUSCULAR HGB CONC 32.7 g/dL (32.0-36.0); MEAN CORPUSCULAR VOLUME 91.7 fL (81.0-99.0); MEAN PLATELET VOLUME 9.7 fL (7.9-10.8); MONOCYTES # (AUTO) 0.6 10^3/uL (0.0-1.0); MONOCYTES % (AUTO) 9.8 %; NEUTROPHILS # (AUTO) 3.8 10^3/uL (1.5-6.6); NEUTROPHILS % (AUTO) 58.7 %; PLT - PLATELET COUNT 300 10^3/uL (130-450); RED BLOOD COUNT 4.47 10^6/uL (4.20-5.40); WHITE BLOOD COUNT 6.5 x10^3/uL (4.8-10.8)
[2021-04-21 21:18] LABS: BUN - BLOOD UREA NITROGEN 27 mg/dL (6-20); CALCIUM 9.2 mg/dL (8.5-10.3); CARBON DIOXIDE - CO2 28 mmol/L (21-32); CHLORIDE 98 mmol/L (101-111); CREATININE 1.1 mg/dL (0.4-1.0); GFR - MDRD 50 (>89); GLUCOSE 79 mg/dL (70-100); POTASSIUM 3.8 mmol/L (3.5-5.0); SODIUM 137 mmol/L (135-145)
[2021-04-21 21:19] LABS: CRP - C-REACTIVE PROTEIN < 1.0 mg/dL (0-1.0)
[2021-04-21] MEDS ORDERED: IOVERSOL 320 100 ML VIAL IVP ONE ×2 (21:24→22:50)
--- NOTE | 2021-04-21 23:09 | CT Report ---
PROCEDURE: ORBITS W INDICATIONS: right retoorbital pain, periorbital swelling CONTRAST: IV CONTRAST: Optiray 320 ml: 100 PO CONTRAST: *NO PO CONTRAST TECHNIQUE: After the administration of intravenous contrast, 2.0 mm axial images acquired through the orbits, wi th coronal reformatting. For radiation dose reduction, the following was used: automated exposure c ontrol, adjustment of mA and/or kV according to patient size. COMPARISON: FINDINGS: Image quality: Excellent. Orbits: Mild subcutaneous edema is seen lateral to the right orbit and along the right supraorbital ridge. No intraorbital edema is seen. Globes are symmetrical. Thinning of the right intraocular lens is consistent with prior cataracts/cataract surgery. The optic nerves are normal in size and enhance ment. No retrobulbar masses or fat abnormalities. The extra-ocular muscles are normal and symmetric al in appearance. Lacrimal glands are normal. Optic chiasm is normal. Intracranial: The pituitary gland is normal, without sellar or suprasellar masses. Visualized cereb ral hemispheres, brainstem, and spinal cord appear normal. Bones and sinuses: Mild chronic right nasal bone deformity related to prior trauma. Visualized dinah rium and facial bones appear intact. Visualized sinuses and mastoids are clear. IMPRESSION: Mild right periorbital subcutaneous edema. No intraorbital edema or signs of orbital cellulitis. Reviewed by: Rolan Lanza MD on 04/21/2021 11:08 PM PST Approved by: Rolan Lanza MD on 04/21/2021 11:08 PM PST Station ID: [id number]
[2021-04-21] MEDS ORDERED: PROPARACAINE 0.5% OPHTH DROPS 15 ML RIGHTEYE STA (23:23)
[2021-04-22] MEDS ORDERED: traMADol 50 MG TABLET PO STA (05:57)
[2021-04-22 06:44] VITALS: BP 116/77
== END 2021-04-22 06:40 | disposition home or self-care (01) ==
LOC: EDUNIT# → ED 19:31
DX: H57.11 Ocular pain, right eye (principal); Z87.891 Personal history of nicotine dependence
CPT/HCPCS: 36415; 70481; 80048; 85025; 85651; 86140; 96374; 96376; 99284; A9270; J3490; Q9967

== ENCOUNTER 2021-10-12 12:00 | Emergency (ER) | payer MEDICARE, OTHER ==
[2021-10-12 12:10] VITALS: BP 114/47
--- NOTE | 2021-10-12 12:24 | ED Physician Documentation ---
History of Present Illness - Stated complaint Stated Complaint: HEAD PX - Chief complaint Chief Complaint: Neuro - History obtained from History obtained from: Patient - History of Present Illness Timing: Today Pain level max: 8 Pain level now: 1 - Additonal information Additional information: Patient is a 66-year-old female who presents to the emergency department with 2 complaints. The first is she states she had a soft tissue tumor removed on the right side of her head, but it has become red and swollen again. She is also concerned that her left breast has become painful and she noticed a small amount of redness today. Concerned for infection. No fevers. No chills. No vomiting. No abdominal pain. No diarrhea or constipation. Has intermittent headaches as well. She states currently her headache is improved. Denies any trauma. The headaches have been ongoing for years. These are no different than her usual headache. Review of Systems Constitutional: denies: Fever, Chills Cardiac: denies: Chest pain / pressure, Palpitations Respiratory: denies: Dyspnea, Cough GI: denies: Abdominal Pain, Vomiting, Diarrhea Musculoskeletal: denies: Neck pain, Back pain Neurologic: denies: Head injury, LOC PD PAST MEDICAL HISTORY - Past Medical History Cardiovascular: None Respiratory: Shortness of breath Neuro: None Endocrine/Autoimmune: None GI: GERD [employer] PRINCIPAL: None : Frequency HEENT: Glaucoma, Dental implants Psych: Depression, Anxiety, Panic attacks Musculoskeletal: Osteoarthritis Derm: Herpes zoster - Past Surgical History Past Surgical History: Yes General: Cholecystectomy, Colonoscopy, EGD /[employer]OL PRINCIPAL: Dilation and currettage, Other Derm: Other (she states cyst excision right parietal area 2 years ago with skin flaps to cover area, and several large scars. ) - Present Medications Home Medications: Ambulatory Orders Medication Instructions Recorded Confirmed Venlafaxine HCl [Venlafaxine HCl 150 mg PO DAILY PM 11/19/16 04/17/21 ER] Timolol 0.5% Ophth Drops [Timoptic 1 drops TOP BID 04/04/21 04/17/21 0.5% Ophth Drops] Doxycycline Hyclate 100 mg PO BID 7 Days #14 cap 04/17/21 Mupirocin 2% Oint [Bactroban 2% 1 applic TOP TID #15 gm 04/17/21 Oint] Sulfacetamide Sodium 3 drops LEFTEYE QID 5 Days #15 ml 04/17/21 Erythromycin Base [Erythromycin 1 applic RIGHTEYE QID 4 Days #3.5 04/18/21 Ophthalmic Ointment] gm traMADol [Ultram] 50 - 100 mg PO Q6H PRN #14 tablet 04/22/21 Sulfamethox/Trimeth 800/160 1 each PO BID #14 tablet 10/12/21 [Bactrim Ds 800/160] cephALEXin [Keflex] 500 mg PO Q6H #28 cap 10/12/21 - Allergies Allergies/Adverse Reactions: Allergies Allergy/AdvReac Type Severity Reaction Status Date / Time acetylcholine Allergy Anaphylaxis Verified 10/12/21 12:10 - Social History Does the pt smoke?: No Smoking Status: Former smoker Does the pt drink ETOH?: No Does the pt have substance abuse?: No - Immunizations Immunizations are current?: Yes - POLST Patient has POLST: No PD ED PE NORMAL - Vitals Vital signs reviewed: Yes - General General: Alert and oriented X 3, No acute distress - HEENT HEENT: Atraumatic, PERRL, EOMI, Ears normal, Moist mucous membranes - Neck Neck: Supple, no meningeal sign - Cardiac Cardiac: RRR, Strong equal pulses - Respiratory Respiratory: No respiratory distress, Clear bilaterally - Abdomen Abdomen: Soft, Non tender, Non distended - Derm Derm: Warm and dry, Other (Chaperoned by Edgardo, audiovisual lead technician. The left breast has mild erythema on the underside of the left breast. No palpable abscess. The right side of the head, in the sabianism area has mild swelling and erythema. no fluctuance) - Extremities Extremities: No deformity - Neuro Neuro: Alert and oriented X 3 - Psych Psych: Normal mood, Normal affect Results - Vitals Vitals: Vital Signs - 24 hr 10/12/21 12:04 Temperature 36.0 C L Heart Rate 93 Respiratory 22 Rate Blood Pressure 114/47 L O2 Saturation 96 Oxygen O2 Source Room air PD MEDICAL DECISION MAKING - ED course Complexity details: reviewed results, re-evaluated patient, considered differential, d/w patient ED course: Patient with what appears to be a early mastitis as well as a right-sided scalp cellulitis. Will place on antibiotics for these. The patient will follow-up closely with her doctor to ensure resolution. If the breast redness does not improve on antibiotics, would be concerned for potential inflammatory breast cancer. The patient states understanding of this and that she will follow-up closely with her doctor. Patient's headache is currently resolved. She does not want any pain medication for here or for home. Does not want any further investigation into her headaches. Patient counseled regarding signs and symptoms for which I believe and urgent re-evaluation would be necessary. Patient with good understanding of and agreement to plan and is comfortable going home at this time This document was made in part using voice recognition software. While efforts are made to proofread this document, sound alike and grammatical errors may occur. Departure - Departure Disposition: Home, Self Care Clinical Impression: Mastitis Cellulitis Qualifiers: Site of cellulitis: unspecified site Qualified Code(s): L03.90 - Cellulitis, unspecified Instructions: ED Infec Skin Cellulitis Follow-Up: Heladio Braun DO [Primary Care Provider] - [facility] [Provider Group] [facility] [Provider Group] Prescriptions: Sulfamethox/Trimeth 800/160 [Bactrim Ds 800/160] 1 each PO BID #14 tablet cephALEXin [Keflex] 500 mg PO Q6H #28 cap Comments: Your prescriptions were sent to the [facility]. Take all antibiotics until gone. Please follow-up with your doctor for further care. Please return if you worsen. Discharge Date/Time: 10/12/21 12:47
[2021-10-12] MEDS ORDERED: cephALEXin 250 MG CAPSULE PO STA (12:28)
[2021-10-12] MEDS ORDERED: SULFAMETH/TRIMETH DS 800/160 MG TABLET PO STA (12:28)
== END 2021-10-12 12:47 | disposition home or self-care (01) ==
LOC: ED 12:00
DX: N61.0 Mastitis without abscess (principal); L03.90 Cellulitis, unspecified; Z87.891 Personal history of nicotine dependence
CPT/HCPCS: 99282; 99284; A9270

== ENCOUNTER 2021-11-08 12:43 | Outpatient (CLI) | payer MEDICARE, OTHER ==
--- NOTE | 2021-11-09 11:29 | Mammography Report ---
BILATERAL DIGITAL DIAGNOSTIC MAMMOGRAM 3D/2D: 11/08/2021 Comparison is made to exam dated: 03/13/2020 mammogram - [facility]. Both breasts are heterogeneously dense, which may obscure small masses (category c / 51-75% glandula r tissue). No significant masses, calcifications, or other findings are seen in either breast. IMPRESSION: NEGATIVE There is no abnormality seen in the left breast to correspond with the diffuse pain, however, clinica l correlation and clinical followup are recommended. There is no mammographic evidence of malignancy. Return to annual mammogram screening schedule is rec ommended. This exam was interpreted at Station ID: [id number]. NOTE: For mammograms, a report in lay terms will be sent to the patient. Approximately 15% of breast malignancies will not be visualized mammographically. In the management of a palpable breast mass, a negative mammogram must not discourage biopsy of a clinically suspicious lesion. Electronically Signed By: Winston Meneses M.D. lc/:11/08/2021 13:54:37 ACR BI-RADS Category 1: Negative [id number] PARENCHYMAL PATTERN: (D) - The breast(s) demonstrate(s) heterogeneously dense fibroglandular henny echols. BI-RADS CATEGORY: (1) - 1 RECOMMENDATION: (ANNUAL) - Recommend routine annual screening mammography. [id number] return to screening LATERALITY: (B)
== END 2021-11-08 12:44 | disposition home or self-care (01) ==
LOC: DI 12:43
PROVIDERS: ATTEND Student in an Organized Health Care Education/Training Program
DX: N64.4 Mastodynia (principal)

== ENCOUNTER 2021-11-30 15:01 | Outpatient (CLI) | payer MEDICARE, OTHER ==
[~2021-11-30 15:01] MED LIST changes: -CYCLOPENTOLATE 1% OPHTH DROPS 2 ML ONE; +GADOBUTROL 7.5 MMOL/7.5 ML VIAL ONE; -KETOROLAC 0.45% OPHTH DROPS ONE; -PHENYLEPHRINE 2.5% OPHTH 2 ML DROPS ONE; -PROPARACAINE 0.5% OPHTH DROPS 15 ML ONE
[2021-11-30 15:26] LABS: POTASSIUM 3.7 mmol/L (3.5-5.0)
[2021-11-30] MEDS ORDERED: GADOBUTROL 7.5 MMOL/7.5 ML VIAL IVP ONE (16:47)
--- NOTE | 2021-11-30 17:29 | MRI Report ---
PROCEDURE: BRAIN W/WO INDICATIONS: HEADACE WITH VISION LOSS CONTRAST: 7.5 TECHNIQUE: Noncontrast axial T1 spin echo, axial T2 fast spin echo, sagittal and axial FLAIR, coronal T2 fast sp in echo, axial gradient echo, axial diffusion and ADC through the brain. After the administration of contrast, axial and coronal T1 spin echo with fat saturation through the brain. COMPARISON: MRI brain 12/05/2018, CTA head 03/10/2017 MRI orbits 04/21/2021 FINDINGS: Image quality: Excellent. CSF spaces: Basal cisterns are patent. No extra-axial fluid collections. Ventricles are normal in size and shape. Brain: No midline shift. No intracranial bleeds or masses. No abnormal intracranial enhancement. T here are scattered areas of periventricular T2 hyperintensities identified. In addition punctate area s are also noted within the praveen. Diffusion-weighted images demonstrate no acute ischemic insults. N o chronic ischemic insults. Normal intravascular flow voids are present. Skull and face: Calvarial marrow is normal in signal. Orbits appear normal. Sinuses: Sinuses and mastoids appear clear. IMPRESSION: Scattered areas of periventricular and subcortical white matter hyperintensities are present. While t hese could represent chronic microvascular ischemic changes, some are noted to be in a somewhat perpe ndicular orientation to the ventricle. This can be seen with demyelinating disease and clinical corre lation is recommended. Reviewed by: Nancy Argueta MD on 11/30/2021 5:27 PM PDT Approved by: Nancy Argueta MD on 11/30/2021 5:27 PM PDT Station ID: [id number]
== END 2021-11-30 15:02 | disposition home or self-care (01) ==
LOC: LAB 15:01
PROVIDERS: ATTEND Student in an Organized Health Care Education/Training Program
DX: R51.9 Headache, unspecified (principal); H54.7 Unspecified visual loss
CPT/HCPCS: 36415; 70553; 80048; A9585

== ENCOUNTER 2022-02-22 17:24 | Emergency (ER) | payer MEDICARE, OTHER ==
[2022-02-22 18:09] VITALS: BP 142/98
[2022-02-22] MEDS ORDERED: cephALEXin 250 MG CAPSULE PO STA (21:09)
--- NOTE | 2022-02-22 21:11 | ED Physician Documentation ---
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 Has seen multiple specialist. Her primary care physician did a culture on it on January 11 which subsequently grew MSSA. She is upset because he did not call her or prescribe antibiotics and she is here requesting antibiotics. 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 ) - Present Medications Home Medications: Ambulatory Orders Medication Instructions Recorded Confirmed Venlafaxine HCl [Venlafaxine HCl 150 mg PO DAILY PM 11/19/16 04/17/21 ER] Timolol 0.5% Ophth Drops [Timoptic 1 drops TOP BID 04/04/21 04/17/21 0.5% Ophth Drops] Doxycycline Hyclate 100 mg PO BID 7 Days #14 cap 04/17/21 Mupirocin 2% Oint [Bactroban 2% 1 applic TOP TID #15 gm 04/17/21 Oint] Sulfacetamide Sodium 3 drops LEFTEYE QID 5 Days #15 ml 04/17/21 Erythromycin Base [Erythromycin 1 applic RIGHTEYE QID 4 Days #3.5 04/18/21 Ophthalmic Ointment] gm traMADol [Ultram] 50 - 100 mg PO Q6H PRN #14 tablet 04/22/21 Sulfamethox/Trimeth 800/160 1 each PO BID #14 tablet 10/12/21 [Bactrim Ds 800/160] cephALEXin [Keflex] 500 mg PO Q6H #28 cap 10/12/21 Mupirocin 2% Oint [Bactroban 2% 1 applic TOP BID #22 gm 02/22/22 Oint] cephALEXin [Keflex] 500 mg PO Q6H #40 cap 02/22/22 - Allergies Allergies/Adverse Reactions: Allergies Allergy/AdvReac Type Severity Reaction Status Date / Time acetylcholine Allergy Anaphylaxis Verified 02/22/22 18:08 - Social History Does the pt smoke?: No Smoking Status: Former smoker Does the pt drink ETOH?: No Does the pt have substance abuse?: No - Immunizations Immunizations are current?: Yes - POLST Patient has POLST: No PD ED PE NORMAL - Vitals Vital signs reviewed: Yes - General General: Alert and oriented X 3, No acute distress - HEENT HEENT: Other (There is a what looks like a chronic draining sinus over the right spiritism with just a touch of mild purulent drainage. No gross fluctuance.) - Neuro Neuro: Alert and oriented X 3, Normal speech Results - Vitals Vitals: Vital Signs - 24 hr 02/22/22 18:05 Temperature 36.6 C Heart Rate 59 L Respiratory 14 Rate Blood Pressure 142/98 H O2 Saturation 98 Oxygen O2 Source Room air Departure - Departure Disposition: 01 Home, Self Care Clinical Impression: Chronic wound of head, Staph infection Condition: Good Record reviewed to determine appropriate education?: Yes Instructions: ED Staph Infec Abx Tx Only Prescriptions: Mupirocin 2% Oint [Bactroban 2% Oint] 1 applic TOP BID #22 gm cephALEXin [Keflex] 500 mg PO Q6H #40 cap Comments: Call your doctor to arrange a follow-up appointment, make the next available appointment. In the interim, return anytime if worse or if new symptoms develop. I sent your prescriptions electronically to [email or web address] in [place].
== END 2022-02-22 21:28 | disposition home or self-care (01) ==
LOC: ED 17:24
DX: S01.80XA Unspecified open wound of other part of head, initial encounter (principal); B95.8 Unspecified staphylococcus as the cause of diseases classified elsewhere; X58.XXXA Exposure to other specified factors, initial encounter; Z87.891 Personal history of nicotine dependence
CPT/HCPCS: 99282; 99283; A9270

== ENCOUNTER 2022-03-01 12:01 | Outpatient (CLI) | payer MEDICARE, OTHER ==
[2022-03-01 12:28] LABS: CREATININE 0.9 mg/dL (0.4-1.0)
[2022-03-01] MEDS ORDERED: GADOBUTROL 7.5 MMOL/7.5 ML VIAL IVP ONE (13:59)
--- NOTE | 2022-03-01 18:53 | MRI Report ---
PROCEDURE: BRAIN W/WO INDICATIONS: ABN MRI CONTRAST: 7.5 cc TECHNIQUE: Noncontrast sagittal T1 spin echo, axial T2 fast spin echo, axial FLAIR, axial gradient echo, axial d iffusion and ADC through the brain. Axial 3-D CISS, thin-slice axial T1 spin echo with fat saturatio n through the skull base. After the administration of contrast, axial and coronal thin-slice T1 spin echo with fat saturation through the skull base, axial T1 spin echo with fat saturation through the brain. COMPARISON: 11/30/2021, 12/05/2018 FINDINGS: Image quality: Excellent. Trigeminal nerves: In this patient with this given history, scrutiny is given to the trigeminal nerv es. The trigeminal nerves demonstrate a normal appearance, without masses or abnormal enhancement, in cluding within the Meckel's caves. CSF spaces: Ventricles are normal in size and shape. No extra-axial fluid collections. Basal ciste rns are patent. Brain: Several foci of T2-weighted hyperintensity can be seen within the white matter. These are michael naya seen within the periventricular and deep white matter. A few of the periventricular lesions de monstrate a perpendicular orientation to the lateral ventricles. These are similar to the prior exam inations. No intracranial bleeds or mass effects. No abnormal intracranial enhancement. Diffusion weighted im ages show no acute ischemic insults. Jones-white matter interface is intact. Brainstem is normal. N ormal intravascular flow voids are present. Skull and face: Calvarial marrow signal is normal. Orbits appear normal. Incidental note is made o f bilateral lens replacements. Sinuses: Sinuses and mastoids appear clear. IMPRESSION: No significant abnormality of the trigeminal nerves can be seen. There are again seen scattered areas of T2-weighted hyperintensity within the periventricular deep wh ite matter. Given the age of the patient, chronic small vessel ischemic change is statistically most likely. A demyelinating process is possible, yet considered to be less likely. Reviewed by: Narciso Lira MD on 03/01/2022 5:[address] [facility] Approved by: Narciso Lira MD on 03/01/2022 5:[address] [facility] Station ID: [id number]
== END 2022-03-01 12:02 | disposition home or self-care (01) ==
LOC: LAB 12:01
PROVIDERS: ATTEND Internal Medicine
DX: G50.9 Disorder of trigeminal nerve, unspecified (principal); R90.89 Other abnormal findings on diagnostic imaging of central nervous system
CPT/HCPCS: 36415; 70553; 82565; A9585

== ENCOUNTER 2022-09-24 02:39 | Emergency (ER) | payer MEDICARE, OTHER ==
[2022-09-24] MEDS ORDERED: cephALEXin 250 MG CAPSULE PO STA (03:01)
--- NOTE | 2022-09-24 03:03 | ED Physician Documentation ---
PD HPI HEENT - Stated complaint Stated Complaint: HEAD PX - Chief complaint Chief Complaint: General - History obtained from History obtained from: Patient - Additional information Additional information: Patient is a 67-year-old female with a history of a chronic wound to the right temporal region. Patient states that she saw a dedicated truck driver at the [facility] last week who expressed some drainage from the wound and cultured it. Patient reports that she checked on her culture results and it grew MSSA. She has been trying to reach out to the dedicated truck driver to get an antibiotic prescription but has not received a return phone call. Patient is here requesting a antibiotics based on her culture results.Patient reports seeing multiple specialist for this wound that it chronically reoccurs. Review of Systems Constitutional: denies: Fever PD PAST MEDICAL HISTORY - Past Medical History Cardiovascular: None Respiratory: Shortness of breath Neuro: None Endocrine/Autoimmune: None GI: GERD ADMITTING SUPERVISOR: None : Frequency HEENT: Glaucoma, Dental implants Psych: Depression, Anxiety, Panic attacks Musculoskeletal: Osteoarthritis Derm: Herpes zoster - Past Surgical History Past Surgical History: Yes General: Cholecystectomy, Colonoscopy, EGD /ADMITTING SUPERVISOR: Dilation and currettage, Other Derm: Other (she states cyst excision right parietal area 2 years ago with skin flaps to cover area, and several large scars. ) - Present Medications Home Medications: Ambulatory Orders Medication Instructions Recorded Confirmed Venlafaxine HCl [Venlafaxine HCl 150 mg PO DAILY PM 11/19/16 04/17/21 ER] Timolol 0.5% Ophth Drops [Timoptic 1 drops TOP BID 04/04/21 04/17/21 0.5% Ophth Drops] Doxycycline Hyclate 100 mg PO BID 7 Days #14 cap 04/17/21 Mupirocin 2% Oint [Bactroban 2% 1 applic TOP TID #15 gm 04/17/21 Oint] Sulfacetamide Sodium 3 drops LEFTEYE QID 5 Days #15 ml 04/17/21 Erythromycin Base [Erythromycin 1 applic RIGHTEYE QID 4 Days #3.5 04/18/21 Ophthalmic Ointment] gm traMADol [Ultram] 50 - 100 mg PO Q6H PRN #14 tablet 04/22/21 Sulfamethox/Trimeth 800/160 1 each PO BID #14 tablet 10/12/21 [Bactrim Ds 800/160] cephALEXin [Keflex] 500 mg PO Q6H #28 cap 10/12/21 Mupirocin 2% Oint [Bactroban 2% 1 applic TOP BID #22 gm 02/22/22 Oint] cephALEXin [Keflex] 500 mg PO Q6H #40 cap 02/22/22 cephALEXin [Keflex] 500 mg PO Q6H #28 cap 09/24/22 - Allergies Allergies/Adverse Reactions: Allergies Allergy/AdvReac Type Severity Reaction Status Date / Time acetylcholine Allergy Anaphylaxis Verified 02/22/22 18:08 - Social History Does the pt smoke?: No Smoking Status: Former smoker Does the pt drink ETOH?: No Does the pt have substance abuse?: No - Immunizations Immunizations are current?: Yes - POLST Patient has POLST: No PD ED PE NORMAL - General General: Alert and oriented X 3, No acute distress, Well developed/nourished - HEENT HEENT: EOMI, Other (Wound to right rastafarian with no fluctuance, unable to express any drainage, appears to be a chronic draining sinus) - Neck Neck: Supple, no meningeal sign - Respiratory Respiratory: No respiratory distress - Neuro Neuro: Alert and oriented X 3, Normal speech Results - Vitals Vitals: Vital Signs - 24 hr 09/24/22 09/24/22 02:50 03:15 Temperature 36 C L Heart Rate 66 68 Respiratory 16 18 Rate Blood Pressure 127/82 H 112/81 H O2 Saturation 99 98 Oxygen O2 Source Room air PD Medical Decision Making - ED course ED course: Patient presenting for antibiotic prescription based on your recent wound culture results. Per results on patient's phone her wound grew out MSSA. She is afebrile and well-appearing. She does not appear septic. There is no fluctuance to suggest need for further incision and drainage. Patient started on cephalexin. She is counseled on concerning symptoms to return for. Departure - Departure Disposition: 01 Home, Self Care Clinical Impression: Chronic wound of head, MSSA (methicillin susceptible Staphylococcus aureus) infection Condition: Stable Instructions: ED Staph Infec Abx Tx Only Follow-Up: [facility] [Provider Group] Prescriptions: cephALEXin [Keflex] 500 mg PO Q6H #28 cap Comments: Please follow-up with your dedicated truck driver regarding your test results and continued follow-up. I have started you on an antibiotic based on your culture results and have sent this prescription to the [facility] pharmacy in [place]. Return to the emergency department if you develop any worsening symptoms. Forms: PCP List Discharge Date/Time: 09/24/22 03:15
[2022-09-24 03:26] VITALS: BP 112/81; O2SAT 98
== END 2022-09-24 03:15 | disposition home or self-care (01) ==
LOC: ED 02:39
DX: S01.80XA Unspecified open wound of other part of head, initial encounter (principal); X58.XXXA Exposure to other specified factors, initial encounter; B95.61 Methicillin susceptible Staphylococcus aureus infection as the cause of diseases classified elsewhere; Z79.899 Other long term (current) drug therapy; Z87.891 Personal history of nicotine dependence
CPT/HCPCS: 99282; 99283; A9270

== ENCOUNTER 2023-01-04 13:52 | Emergency (ER) | payer MEDICARE, OTHER ==
[2023-01-04] MEDS ORDERED: PROPARACAINE 0.5% OPHTH DROPS 15 ML RIGHTEYE STA (14:48)
--- NOTE | 2023-01-04 15:49 | ED Physician Documentation ---
PD HPI OPHTHO - Stated complaint Stated Complaint: RT EYE PX SWELLING,NO VISION, - Chief complaint Chief Complaint: Heent - History obtained from History obtained from: Patient, Family - History of Present Illness Timing - onset: Yesterday Timing - duration: Days (2) Timing - details: Gradual onset, Still present Location: Right Quality / character: Burning, Sharp Associated symptoms: Redness, Tearing, Discharge, FB sensation, Loss of vision Contributing factors: Wears glasses, Other (started oxervate for neurodegenartive kerititis) Similar symptoms before: Diagnosis (corneal leak after cataract proceedure) Recently seen: Clinic - Additional information Additional information: 67-year-old lore De La Torre sees a corneal specialist at [facility] Dr. Kumar. 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 She indicates that her eyesight in her right eye has been failing for years and that after she started these drops she suddenly had a marked increase in pain, redness and cloudiness to the cornea. She was unable to see from the right eye this morning. She sto pped the drops after 6 drops applied on of this week. She called her corneal surgeon and spoke with the professional poker player who indicated services would not be available today. She feels there is fluid leaking from the cornea and the eye is not bulging out as much as it normally is. 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 : Frequency HEENT: Glaucoma, Dental implants Psych: Depression, Anxiety, Panic attacks Musculoskeletal: Osteoarthritis Derm: Herpes zoster - Past Surgical History Past Surgical History: Yes General: Cholecystectomy, Colonoscopy, EGD /ELECTRONICS TECHNOLOGY DEPARTMENT CHAIR: Dilation and currettage, Other Derm: Other - Present Medications Home Medications: Ambulatory Orders Medication Instructions Recorded Confirmed Venlafaxine HCl [Venlafaxine HCl 150 mg PO DAILY PM 10/10/17 03/08/22 ER] Timolol 0.5% Ophth Drops [Timoptic 1 drops TOP BID 04/04/21 04/17/21 0.5% Ophth Drops] Doxycycline Hyclate 100 mg PO BID 7 Days #14 cap 04/17/21 Mupirocin 2% Oint [Bactroban 2% 1 applic TOP TID #15 gm 04/17/21 Oint] Sulfacetamide Sodium 3 drops LEFTEYE QID 5 Days #15 ml 04/17/21 Erythromycin Base [Erythromycin 1 applic RIGHTEYE QID 4 Days #3.5 04/18/21 Ophthalmic Ointment] gm traMADol [Ultram] 50 - 100 mg PO Q6H PRN #14 tablet 04/22/21 Sulfamethox/Trimeth 800/160 1 each PO BID #14 tablet 10/12/21 [Bactrim Ds 800/160] cephALEXin [Keflex] 500 mg PO Q6H #28 cap 10/12/21 Mupirocin 2% Oint [Bactroban 2% 1 applic TOP BID #22 gm 02/22/22 Oint] cephALEXin [Keflex] 500 mg PO Q6H #40 cap 02/22/22 cephALEXin [Keflex] 500 mg PO Q6H #28 cap 09/24/22 - Allergies Allergies/Adverse Reactions: Allergies Allergy/AdvReac Type Severity Reaction Status Date / Time acetylcholine Allergy Anaphylaxis Verified 01/04/23 14:06 - Social History Does the pt smoke?: No Smoking Status: Never smoker Does the pt drink ETOH?: No Does the pt have substance abuse?: Yes Substance Use and Type: CBD oil / Products - Immunizations Immunizations are current?: No - POLST Patient has POLST: No PD ED PE NORMAL - Vitals Vital signs reviewed: Yes - General General: Alert and oriented X 3, Well developed/nourished, Other (anxious female with obvious right corneal cloudiness) - HEENT HEENT: Atraumatic, Other (The right cornea use cloudy there are bright red blood vessels in the cornea itself I am unable to fully appreciate the iris. The eye is soft to the touch and the pressure measures 3. Fluorescein uptake shows deep uptake across the eye and a jagged pattern.) - Respiratory Respiratory: No respiratory distress - Derm Derm: Normal color, Warm and dry, No rash - Extremities Extremities: No deformity, No edema - Neuro Neuro: Alert and oriented X 3, No motor deficit, No sensory deficit, Normal speech Eye Opening: Spontaneous Motor: Obeys Commands Verbal: Oriented GCS Score: 15 - Psych Psych: Normal mood, Normal affect Results - Vitals Vitals: Vital Signs - 24 hr 01/04/23 01/04/23 01/04/23 13:59 14:06 14:36 Temperature 36.5 C 36.5 C Heart Rate 78 78 76 Respiratory 16 16 18 Rate Blood Pressure 132/92 H 132/92 H 130/90 H O2 Saturation 100 100 98 01/04/23 01/04/23 01/04/23 15:06 15:30 16:00 Temperature 36.6 C 36.5 C 36.5 C Heart Rate 76 72 74 Respiratory 16 16 16 Rate Blood Pressure 132/88 H 130/80 128/82 H O2 Saturation 100 100 98 01/04/23 01/04/23 17:00 17:30 Temperature 36.5 C 36.5 C Heart Rate 72 74 Respiratory 16 18 Rate Blood Pressure 124/80 122/82 H O2 Saturation 98 100 Oxygen O2 Source Room air PD Medical Decision Making - ED course Complexity details: reviewed old records, reviewed results, re-evaluated patient, considered differential, d/w patient, d/w family ED course: 67-year-old female with an acutely clouded right cornea with evidence of deflation of the globe in some fashion. 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 I attempted to consult the on-call provider for the patient Dr. Guerrero who indicated he would not be able to perform a surgery on the patient and recommended the patient follow-up at [facility]. I contacted our surgeon here who indicated that he would be able to provide a temporizing measure and following this the patient has committed herself to following up at [facility] as she is realizing this is her only option. I spoke [place]. Root at [facility] and she will accept the patient in transfer to the ED for evaluation. The patient is transported via private auto with her spouse driving. Departure - Departure Disposition: 02 Transfer Acute Care Hosp Clinical Impression: Keratitis, right Follow-Up: [facility] [Other] Comments: Sofi, today it looks like your neurodegenerative keratitis has resulted in a leak from your cornea. We have contacted the doctors at [facility] and Dr. Root will see you at the emergency department at [facility]. Go directly there this evening. Do not have anything to eat. Forms: PCP List Discharge Date/Time: 01/04/23 17:55
[2023-01-04 18:03] VITALS: BP 122/82; O2SAT 100
== END 2023-01-04 17:55 | disposition short-term general hospital (02) ==
LOC: ED 13:52
DX: H16.8 Other keratitis (principal)
CPT/HCPCS: 99284; 99285; J3490

== ENCOUNTER 2023-01-25 13:42 | Outpatient (CLI) | payer MEDICARE, OTHER | END 2023-01-25 13:43 | disposition home or self-care (01) | LOC: LAB 13:42 | PROVIDERS: ATTEND Family Medicine | DX: H40.2213 Chronic angle-closure glaucoma, right eye, severe stage (principal); L98.8 Other specified disorders of the skin and subcutaneous tissue; Z13.6 Encounter for screening for cardiovascular disorders | CPT/HCPCS: 80053; 80061; 83036; 83721; 84443 ==

== ENCOUNTER 2023-01-29 14:33 | Outpatient (CLI) | payer MEDICARE, OTHER ==
--- NOTE | 2023-01-29 15:04 | DEXA Report ---
PROCEDURE: Dexa Spine and/or Hip INDICATIONS: POST MENOPAUSAL TECHNIQUE: Dual energy x-ray absorptiometry (DXA) was performed on a Leversense System. Regions measur ed are the AP Spine, femoral neck, and if needed forearm. COMPARISON: None FINDINGS: Lumbar Spine: Bone Mineral Density 1.088 g/cm/cm,T score -0.8. Left Femoral Neck: Bone Mineral Density 0.685 g/cm/cm, T score -2.5. Left Hip: Bone Mineral Density 0.760 g/cm/cm,T score -2.0. (T score greater or equal to -1.0: NORMAL) (T score from -1.1 to -2.4: OSTEOPENIA) (T score less than or equal to -2.5 to: OSTEOPOROSIS) Impression: By WHO criteria, this patient has osteoporosis. Patients with diagnosis of osteoporosis or osteopenia should have regular bone mineral density assessment. For those eligible for Medicare, routine testi ng is allowed once every 2 years. Testing frequency can be increased for patients who have rapidly p rogressing disease or for those who are receiving medical therapy to restore bone mass. Reviewed by: David Riggs MD on 01/29/2023 3:03 PM PST Approved by: David Riggs MD on 01/29/2023 3:03 PM PST Station ID: [id number]
== END 2023-01-29 14:34 | disposition home or self-care (01) ==
LOC: DI 14:33
PROVIDERS: ATTEND Family Medicine
DX: Z78.0 Asymptomatic menopausal state (principal); M81.0 Age-related osteoporosis without current pathological fracture

== ENCOUNTER 2023-04-04 15:53 | Outpatient (CLI) | payer MEDICARE, OTHER ==
--- NOTE | 2023-04-04 19:33 | CT Report ---
PROCEDURE: Maxillofacial WO INDICATIONS: SINUS PRESSURE, CSF LEAK TECHNIQUE: Noncontrast 1.5 mm thick axial images acquired from the mandible through the frontal sinuses, with co polly and sagittal reformatting. 3-D reformatted images were performed. For radiation dose reducti on, the following was used: automated exposure control, adjustment of mA and/or kV according to julien ent size. COMPARISON: 03/10/2017. Correlation is made with prior brain MRI, 03/01/2022. Correlation is also ma de with prior orbits CT, 04/21/2021. FINDINGS: Image quality: Excellent. Bones and teeth: Orbital lacey are intact. Sinus lacey show no fracture or deformity. Nasal bones and septum are intact. Visualized portions of the mandible demonstrate no fractures or subluxation. Zygomatic arches are intact. Pterygoid plates are intact. Visualized portions of the skull base an d auditory canals are intact. Sinuses: Paranasal sinuses are aerated, without fluid levels, mucosal thickening, or mucoceles. Mas toid air cells are aerated. The ostiomeatal complexes are patent, yet they are constitutionally narr owed, with bilateral Samantha cells. Soft tissues: No edema, masses, or fluid collections. No enlarged lymph nodes. No soft tissue lace rations or debris. Vascular: Visualized vascular structures appear normal in the absence of contrast. Bony vascular fo ramina and canals are intact. IMPRESSION: No imaging explanation is found for the patient's presenting symptoms. No fractures are seen. A source of CSF leak cannot be seen. No significant paranasal sinus disease is seen. The ostiomeatal complexes are patent, yet they are constitutionally narrowed, with bilateral Samantha c ells. Reviewed by: Narciso Lira MD on 04/04/2023 6:32 PM [facility] Approved by: Narciso Lira MD on 04/04/2023 6:32 PM [facility] Station ID: [id number]
== END 2023-04-04 15:54 | disposition home or self-care (01) ==
LOC: DI 15:53
PROVIDERS: ATTEND Otolaryngology
DX: J34.89 Other specified disorders of nose and nasal sinuses (principal); G96.00 Cerebrospinal fluid leak, unspecified

== ENCOUNTER 2023-05-17 15:01 | Outpatient (CLI) | payer MEDICARE, OTHER ==
--- NOTE | 2023-05-17 20:57 | Ultrasound Report ---
PROCEDURE: Extremity Soft Tissue Limited INDICATIONS: LEFT ARM MASS. Mass has been present for 12 years but recently increase in size and bec kathrin painful. TECHNIQUE: Real-time scanning was performed of the left upper arm, with image documentation. COMPARISON: None. FINDINGS: Intramuscular echogenic lesion in the left upper arm measuring 2.3 x 2.1 x 1 cm. IMPRESSION: Intramuscular echogenic lesion in the left upper arm measuring 2.3 x 2.1 x 1 cm. Findings likely repr esent a lipoma; however, given the increase in size and pain, an MRI can be performed for further omari luation, at clinical discretion. Reviewed by: lAan Oliver MD on 05/17/2023 8:55 PM PDT Approved by: Alan Oliver MD on 05/17/2023 8:55 PM PDT Station ID: [id number]
== END 2023-05-17 15:02 | disposition home or self-care (01) ==
LOC: DI 15:01
PROVIDERS: ATTEND Surgery
DX: R22.32 Localized swelling, mass and lump, left upper limb (principal)

== ENCOUNTER 2023-06-03 11:22 | Day surgery (SDC) | payer MEDICARE, OTHER ==
[2023-06-03] MEDS: LACTATED RINGERS 1,000 ML IV ONE ×2 (11:25→13:18)
--- NOTE | 2023-06-03 12:27 | ANESTHESIA ---
Pre-Anesthesia VS, & Labs - Diagnosis SCREENING - Procedure COLONOSCOPY Vital Signs: Temp Pulse Resp BP Pulse Ox O2 Flow Rate 36.0 C L 77 27 H 115/92 H 99 06/03/23 11:25 06/03/23 11:25 06/03/23 11:25 06/03/23 11:25 06/03/23 11:25 Height: 5 ft 8.5 in Weight (kg): 76.8 kg Body Mass Index: 25.3 BMI Classification: Overweight - NPO Last Fluid Intake: 829 Last Food Intake: >8HR - Is Patient ?: No Home Medications and Allergies Venlafaxine HCl [Venlafaxine HCl ER] 150 mg PO DAILY PM 11/19/16 Timolol 0.5% Ophth Drops [Timoptic 0.5% Ophth Drops] 1 drops TOP BID 04/04/21 Allergies/Adverse Reactions: Allergies Allergy/AdvReac Type Severity Reaction Status Date / Time acetylcholine Allergy Anaphylaxis Verified 01/04/23 14:06 Anes History & Medical History - Anesthetic History Anesthesia Complications: reports: No previous complications (CHART SAYS ACETYLCHOLINE ALLERGY/ANAPHYLAXIS..... PT HAS NO MEMORY OF THIS) Family history of Anesthesia Complications: Denies Family history of Malignant Hyperthermia: Denies - Medical History Cardiovascular: reports: None Pulmonary: reports: Shortness of breath (WALKS ABLE WITHOUT PROBLEM) Gastrointestinal: reports: None Urinary: reports: None Neuro: reports: None Musculoskeletal: reports: Osteoarthritis Endocrine/Autoimmune: reports: None Skin: reports: Herpes zoster Smoking Status: Former smoker (15 YR 1PPD) Psychosocial: reports: No issues indicated - Surgical History General: reports: Cholecystectomy, Colonoscopy, EGD Gynecologic: reports: Dilation and currettage, Other Dermatologic: reports: Other Results - EKG Results EKG Comparison: Reviewed EKG Exam General: Alert Dental: WNL Neck Mobility: Normal Mallampati classification: II Thyromental Distance: 4-6 cm Respiratory: Lungs clear Plan Anesthesia Type: Total IV Consent for Procedure(s) Verified and Reviewed: Yes Code Status: Attempt Resuscitation ASA classification: 2-Mild systemic disease Is this case an emergency?: No
[2023-06-03] MEDS ORDERED: LIDOCAINE-PF 2% 10 ML AMP SUBQ ONE (12:36)
[2023-06-03] MEDS ORDERED: PROPOFOL 500 MG/50 ML 500 MG/50 ML VIAL ONE (12:36)
--- NOTE | 2023-06-03 13:31 | ANESTHESIA POST OP EVALUATION ---
Anesthesia Post Eval - Post Anesthesia Eval Vitals: Last Vital Signs Temp 36.0 C L 06/03/23 13:18 Pulse 58 L 06/03/23 13:18 Resp 18 06/03/23 13:18 BP 106/57 L 06/03/23 13:18 Pulse Ox 100 06/03/23 13:18 O2 Flow Rate CV Function Including HR & BP: Stable Pain Control: Satisfactory Nausea & Vomiting: Negative Mental Status: Baseline Respiratory Status: Airway Patent Hydration Status: Satisfactory Anesthesia Complications: None
[2023-06-03 13:40] VITALS: BP 114/74; O2SAT 96
== END 2023-06-03 11:23 | disposition home or self-care (01) ==
LOC: SDS 11:22
PROVIDERS: ATTEND Surgery
PROC: 0DBH8ZX Excision of Cecum, Via Natural or Artificial Opening Endoscopic, Diagnostic (ICD-10-PCS; principal; 2023-06-03 13:00)
DX: Z12.11 Encounter for screening for malignant neoplasm of colon (principal); D12.0 Benign neoplasm of cecum; K57.30 Diverticulosis of large intestine without perforation or abscess without bleeding; I10 Essential (primary) hypertension; Z87.891 Personal history of nicotine dependence
CPT/HCPCS: 45385; J7120